=== PATIENT | male | born 1935 | race Caucasian/White ===

== ENCOUNTER 2020-12-05 09:21 | Inpatient (IN) | payer MEDICARE ==
[~2020-12-05] VITALS: Ht 177.8 cm; Wt 54.1 kg
[~2020-12-05 09:21] MED LIST: CRESTOR10 MG PO; EZET10TA20 PO; GLYB5TAB3 PO; HYDR-2761 PO; METF500T16 PO; PIOG30TA62 PO
[2020-12-05 09:52] LABS: BASO % 0 % (0-3); EOS % 0 % (0-3); HEMOGLOBIN 9.7 g/dL (13.0-17.5); LYMPH # 0.4 x10^3/uL (1.0-4.8); LYMPH % 6 % (24-48); MEAN CORPUSCULAR HEMOGLOBIN 23 pg (25-35); MEAN CORPUSCULAR HGB CONC 32 g/dL (31-37); MEAN CORPUSCULAR VOLUME 73 fL (79-100); MONO # 0.3 x10^3/uL (0.0-1.1); MONO % 4 % (0-9); NEUT % 90 % (31-73); PLATELET COUNT 229 x10^3/uL (140-400); RED BLOOD COUNT 4.14 x10^6/uL (4.30-5.70); RED CELL DISTRIBUTION WIDTH 16.2 % (11.5-14.5); WHITE BLOOD COUNT 6.7 x10^3/uL (4.0-11.0)
[2020-12-05 10:08] LABS: CALCIUM 8.8 mg/dL (8.5-10.1); CREATININE 0.6 mg/dL (0.7-1.3); GFR 127.7; POTASSIUM 3.5 mmol/L (3.5-5.1)
[2020-12-05 10:11] LABS: MAGNESIUM 1.5 mg/dL (1.8-2.4); TOTAL BILIRUBIN 0.4 mg/dL (0.2-1.0); TOTAL PROTEIN 8.1 g/dL (6.4-8.2)
--- NOTE | 2020-12-05 10:13 | RAD ---
Exam Date: 12/05/2020 9:45 AM XR CHEST 1V Indication: Reason: fall/gen weakness / Spl. Instructions: / History: . FINDINGS/ IMPRESSION: Blunting of the right costophrenic angle may represent pleural thickening/scarring versus a small rig ht pleural effusion. Bibasilar atelectasis and/or scarring is noted. No pneumothorax. The cardiac silhouette and pulmonary vasculature are within normal limits. Electronically signed by: Jose E Armstrong MD (12/05/2020 10:11 AM) [id number]
--- NOTE | 2020-12-05 11:02 | RAD ---
CT head without contrast dated 12/05/2020 10:57 AM Comparison: None CLINICAL INDICATION: Altered mental status TECHNIQUE: Contiguous axial imaging of the head was performed from skull base to vertex. One or more of the following individualized dose reduction techniques were utilized for this examinat ion: 1. Automated exposure control 2. Adjustment of the mA and/or kV according to patient size 3. Use of iterative reconstruction technique. FINDINGS: Study is limited due to motion artifact. Ventricles and sulci are mildly prominent for age. No midlin e shift or mass effect. Moderate patchy low density in the deep/subcortical periventricular white mat ter. Focal zone of low density in the middle cranial fossa on the right. No hemorrhage or extra-axial collection. Posterior fossa and brainstem unremarkable. Mild mucosal thickening of the ethmoid air cells. The visualized paranasal sinuses and mastoid air ce lls are otherwise clear. No apparent calvarial abnormality. IMPRESSION: 1. Focal zone of low density in the right temporal lobe is indeterminate and could represent subacute to remote infarct. Underlying mass with vasogenic edema cannot be excluded. Correlate clinically. If indicated, MRI brain with and without contrast and better evaluate. 2. Mild to moderate chronic small vessel ischemic changes and atrophy. 3. No apparent acute hemorrhage Electronically signed by: Jama Julio MD (12/05/2020 11:00 AM) [id number]
[2020-12-05 11:15] LABS: BILIRUBIN,URINE NEGATIVE (NEG); CLARITY,URINE CLEAR; COLOR,URINE YELLOW; NITRITE,URINE NEGATIVE (NEG); PROTEIN,URINE 100 mg/dL (NEG-TRACE); UROBILINOGEN,URINE 0.2 mg/dL (0.2 mg/dL)
[2020-12-05 11:21] LABS: BARBITURATES NEG (NEG); BENZODIAZEPINES NEG (NEG); CANNABINOIDS NEG (NEG); COCAINE NEG (NEG); METHADONE NEG (NEG); OPIATES NEG (NEG); PHENCYCLIDINE NEG (NEG)
[2020-12-05 11:24] LABS: AMPHETAMINE/METHAMPHETAMINE NEG (NEG)
[2020-12-05 11:49] LABS: BACTERIA,URINE 0 /HPF (0-FEW); RBC,URINE OCC /HPF (0-2); WBC,URINE 0 /HPF (0-4)
[2020-12-05] MEDS ORDERED: DIPH,PERTUSS(ACELL),TET VAC/PF 0.5 ML SYRINGE. VAX IM ONE (12:00)
--- NOTE | 2020-12-05 12:09 | PHYS DOC ---
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 reports patient fell out of the chair, hit the back of his head and passed out for a few seconds. States he woke up and was responding appropriately but later in the night became confused when his children came over to see him (cannot recall a specific time). This morning patient would not get out of bed. Has a baseline tremor. states "Is this early dementia?" Cannot recall any new medications. No h/o alcohol or drug use. Review of Systems: Review of Systems: Review of systems indeterminate given pts' mental status and confusion-brii ppropriate responses Heart Score: C/O Chest Pain: N/A Risk Factors: Risk Factors: DM, Current or recent (<one month) smoker, HTN, HLP, family history of CAD, obesity. Risk Scores: Score 0 - 3: 2.5% MACE over next 6 weeks - Discharge Home Score 4 - 6: 20.3% MACE over next 6 weeks - Admit for Clinical Observation Score 7 - 10: 72.7% MACE over next 6 weeks - Early Invasive Strategies Allergies: Allergies: Allergies Coded Allergies Type Severity Reaction Last Updated Verified amoxicillin Allergy Intermediate 07/25/13 Yes Physical Exam: PE: Constitutional: afebrile, states he needs to pee and tries to get out of bed- requires verbal deescalation, inappropriate responses HENT: No scalp hematoma-scalp scab present, no facial droop, dry mucous membranes Eyes: miotic pupils, EOMI, conjunctiva normal, no discharge, Neck: Normal range of motion, supple, looking left Cardiovascular: S1/2 present, regular rhythm Lungs & Thorax: Speaking in full sentences, bilateral equal chest rise, no tachypnea or increased work of breathing Abdomen: soft, no tenderness, Skin: Warm, dry, no erythema, no rash. [] Back: No tenderness, no CVA tenderness. [] Extremities: No tenderness, no cyanosis, no lower extremity edema Neurologic: Alert, baseline approximately tremors, moves in all 4 extremities with no drift, Psychologic: Affect normal, calm mood : No rash, no urine in urinal Current Patient Data: Labs: Laboratory Tests Test 12/05/20 08:54 12/05/20 09:37 Urine Collection Type Unknown Urine Color Yellow Urine Clarity Clear Urine pH 6.0 (<5.0-8.0) Urine Specific Pierson 1.020 (1.000-1.030) Urine Protein 100 mg/dL (NEG-TRACE) Urine Glucose (UA) 250 mg/dL (NEG) Urine Ketones (Stick) 15 mg/dL (NEG) Urine Blood Small (NEG) Urine Nitrite Negative (NEG) Urine Bilirubin Negative (NEG) Urine Urobilinogen Dipstick 0.2 mg/dL (0.2 mg/dL) Urine Leukocyte Esterase Negative (NEG) Urine RBC Occ /HPF (0-2) Urine WBC 0 /HPF (0-4) Urine Squamous Epithelial Cells Occ /LPF Urine Bacteria 0 /HPF (0-FEW) Urine Mucus Slight /LPF Urine Opiates Screen Neg (NEG) Urine Methadone Screen Neg (NEG) Urine Barbiturates Neg (NEG) Urine Phencyclidine Screen Neg (NEG) Urine Amphetamine/Methamphetamine Neg (NEG) Urine Benzodiazepines Screen Neg (NEG) Urine Cocaine Screen Neg (NEG) Urine Cannabinoids Screen Neg (NEG) Urine Ethyl Alcohol Neg (NEG) White Blood Count 6.7 x10^3/uL (4.0-11.0) Red Blood Count 4.14 x10^6/uL (4.30-5.70) L Hemoglobin 9.7 g/dL (13.0-17.5) L Hematocrit 30.0 % (39.0-53.0) L Mean Corpuscular Volume 73 fL (79-100) L Mean Corpuscular Hemoglobin 23 pg (25-35) L Mean Corpuscular Hemoglobin Concent 32 g/dL (31-37) Red Cell Distribution Width 16.2 % (11.5-14.5) H Platelet Count 229 x10^3/uL (140-400) Neutrophils (%) (Auto) 90 % (31-73) H Lymphocytes (%) (Auto) 6 % (24-48) L Monocytes (%) (Auto) 4 % (0-9) Eosinophils (%) (Auto) 0 % (0-3) Basophils (%) (Auto) 0 % (0-3) Neutrophils # (Auto) 6.0 x10^3/uL (1.8-7.7) Lymphocytes # (Auto) 0.4 x10^3/uL (1.0-4.8) L Monocytes # (Auto) 0.3 x10^3/uL (0.0-1.1) Eosinophils # (Auto) 0.0 x10^3/uL (0.0-0.7) Basophils # (Auto) 0.0 x10^3/uL (0.0-0.2) Sodium Level 137 mmol/L (136-145) Potassium Level 3.5 mmol/L (3.5-5.1) Chloride Level 97 mmol/L (98-107) L Carbon Dioxide Level 30 mmol/L (21-32) Anion Gap 10 (6-14) Blood Urea Nitrogen 16 mg/dL (8-26) Creatinine 0.6 mg/dL (0.7-1.3) L Estimated GFR (Cockcroft-Gault) 127.7 BUN/Creatinine Ratio 27 (6-20) H Glucose Level 190 mg/dL (70-99) H Calcium Level 8.8 mg/dL (8.5-10.1) Magnesium Level 1.5 mg/dL (1.8-2.4) L Total Bilirubin 0.4 mg/dL (0.2-1.0) Aspartate Amino Transferase (AST) 17 U/L (15-37) Alanine Aminotransferase (ALT) 19 U/L (16-63) Alkaline Phosphatase 66 U/L (46-116) Troponin I High Sensitivity 10 ng/L (4-75) DB-Ppb-P-Type Natriuretic Peptide 739 pg/mL (0-449) H Total Protein 8.1 g/dL (6.4-8.2) Albumin 4.0 g/dL (3.4-5.0) Albumin/Globulin Ratio 1.0 (1.0-1.7) Laboratory Tests 12/05/20 09:37 Laboratory Tests 12/05/20 09:37 Vital Signs: Vital Signs Date Time Temp Pulse Resp B/P (MAP) Pulse Ox O2 Delivery O2 Flow Rate FiO2 12/05/20 09:30 99.5 97 16 164/84 (110) 97 Room Air 99.5 EKG: EKG: sinus rhythm 86 bpm, no axis deviation, first-degree AV block with WI interval 226, QTc 451, no T wave inversion, no ST elevation or ST depression Radiology/Procedures: Radiology/Procedures: IMAGING REPORT Signed PATIENT: ERNA AMOR ACCOUNT: [id number] : 1935 LOCATION: ER AGE: 84 SEX: M EXAM STATUS: REG ER ORD. PHYSICIAN: HELEN MAIER DO REASON: ams PROCEDURE: CT HEAD WO CONTRAST CT head without contrast dated 12/05/2020 10:57 AM Comparison: None CLINICAL INDICATION: Altered mental status TECHNIQUE: Contiguous axial imaging of the head was performed from skull base to vertex. One or more of the following individualized dose reduction techniques were utilized for this examination: 1. Automated exposure control 2. Adjustment of the mA and/or kV according to patient size 3. Use of iterative reconstruction technique. FINDINGS: Study is limited due to motion artifact. Ventricles and sulci are mildly prominent for age. No midline shift or mass effect. Moderate patchy low density in the deep/subcortical periventricular white matter. Focal zone of low density in the middle cranial fossa on the right. No hemorrhage or extra-axial collection. Posterior fossa and brainstem unremarkable. Mild mucosal thickening of the ethmoid air cells. The visualized paranasal sinuses and mastoid air cells are otherwise clear. No apparent calvarial abnormality. IMPRESSION: 1. Focal zone of low density in the right temporal lobe is indeterminate and could represent subacute to remote infarct. Underlying mass with vasogenic edema cannot be excluded. Correlate clinically. If indicated, MRI brain with and without contrast and better evaluate. 2. Mild to moderate chronic small vessel ischemic changes and atrophy. 3. No apparent acute hemorrhage Electronically signed by: Jama Julio MD (12/05/2020 11:00 AM) [id number] DICTATED and SIGNED BY: JAMA JULIO MD DATE: 12/05/20 [id number] IMAGING REPORT Signed PATIENT: ERNA AMOR ACCOUNT: [id number] : 1935 LOCATION: ER AGE: 84 SEX: M EXAM STATUS: REG ER ORD. PHYSICIAN: HELEN MAIER DO REASON: fall/gen weakness PROCEDURE: PORTABLE CHEST 1V Exam Date: 12/05/2020 9:45 AM XR CHEST 1V Indication: Reason: fall/gen weakness / Spl. Instructions: / History: . FINDINGS/ IMPRESSION: Blunting of the right costophrenic angle may represent pleural thickening/scarring versus a small right pleural effusion. Bibasilar atelectasis and/or scarring is noted. No pneumothorax. The cardiac silhouette and pulmonary vasculature are within normal limits. Electronically signed by: Lindsay Armstrong MD (12/05/2020 10:11 AM) [id number] DICTATED and SIGNED BY: LINDSAY ARMSTRONG MD DATE: 12/05/20 [id number] 0 Course & Med Decision Making: Course & Med Decision Making Pertinent Labs and Imaging studies reviewed. (See chart for details) Concern for new onset altered mental status within the past 12 to 24 hours. I spoke w/Dr. Evans in the ed regarding pts' care. Neurology consult placed including nonemergent MRI of the head without contrast. Will admit for further medical management. Patient stable at time of admission agrees with this plan. I have spoken with the patient and/or caregivers. I have explained the patie nt's condition, diagnosis and treatment plan based on the information available to me at this time. I have answered the patient's and/or caregivers questions and answered any concerns. The patient and/or caregivers have as good an understanding of the patient's diagnosis, condition and treatment plan as can be expected at this point. The patient has been stabilized within the capability of the emergency department. The patient will be transported for further care and management or will be moved to an observation or inpatient service. I have communicated with the staff or medical practitioner taking over this patient's care. Dragon Disclaimer: Dragon Disclaimer: This electronic medical record was generated, in whole or in part, using a voice recognition dictation system. Departure Departure Impression: Primary Impression: Altered mental status Additional Impressions: Abrasion of head Need for Tdap vaccination Abnormal CT of brain Microcytic anemia Disposition: ADMITTED INPATIENT Admitting Physician: Marisela Evans Condition: GUARDED Referrals: MARISELA EVANS MD (PCP) HELEN MAIER DO Dec 05, 2020 12:09
[2020-12-05] MEDS ORDERED: CONTRAST GIVEN. MC PRN (12:30)
[2020-12-05] MEDS ORDERED: IOHEXOL 300 MG/ML 100ML VIAL. IV ONE (12:30)
--- NOTE | 2020-12-05 14:15 | RAD ---
EXAM: 1. CTA HEAD WITH AND WITHOUT CONTRAST. 2. CTA NECK WITH AND WITHOUT CONTRAST. HISTORY: Left gaze deviation, aphasia. TECHNIQUE: Computed tomographic angiography of the head and neck was performed before and after the i ntravenous administration of iodinated contrast. Three-dimensional reconstructions were also performe d. One or more of the following individualized dose reduction techniques were utilized for this exami nation: 1. Automated exposure control. 2. Adjustment of the mA and/or kV according to patient size. 3. Use of iterative reconstruction technique. COMPARISON: CT 12/05/2020. FINDINGS: Angiographic findings: The aortic arch has a typical branching pattern. There is no arch vessel steno sis. Extensive calcified plaquing at the right greater than left carotid bulbs extends to the origins of b oth cervical internal carotid arteries. This results in <50% stenosis on the right. There is no hemod ynamically significant stenosis of either cervical internal carotid artery. There is moderate stenosi s at the origin of the right external carotid artery. The left is patent. The vertebral arteries are patent. The left is dominant and the right relatively small. The basilar artery is small but patent. The posterior communicating arteries are the main supply to b oth posterior cerebral arteries. The P1 segments are diminutive bilaterally. Both posterior cerebral arteries are patent. There are moderate atherosclerotic calcifications of both cavernous internal carotid arteries. There is mild dolichoectasia bilaterally, measuring up to 7 mm on the right and 6 mm on the left. There is no significant stenosis. The middle cerebral arteries are patent. The anterior cerebral arteries are patent. The anterior communicating artery is visualized. Nonangiographic findings: There is no intracranial hemorrhage. Hypoattenuation is again noted through out the right anterior temporal lobe. There is no clear underlying enhancing lesion, though sensitivi ty is low by this technique. Prominence of the lateral ventricles and hemispheric sulci indicate mode rate atrophy. There is moderate mucosal thickening within the right maxillary sinus. There are changes of bilateral cataract surgery. The temporal bones are unremarkable. Bone windows reveal no suspicious lesions. Th ere is diffuse moderate cervical central canal stenosis. The lung apices demonstrate a small to moder ate right pleural effusion. The parotid glands and submandibular glands are unremarkable. The thyroid gland demonstrates no suspi cious lesions. There are no laryngeal or pharyngeal masses. There are no pathologically enlarged lymph nodes. IMPRESSION: 1. Hypoattenuation of the right anterior temporal lobe may represent a subacute infarct. An underlyin g mass or inflammatory processes such as encephalitis are not excluded. MRI with and without contrast and correlation to exclude infection recommended. 2. <50% stenosis at the origin of the right cervical internal carotid artery. 3. 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 No intracranial stenosis or aneurysm. 4. Small posterior circulation. Persistent supply to both posterior cerebral arteries. 5. Small to moderate right pleural effusion. PQRS Compliance Statement - Stenosis calculations for CT, MR and conventional angiography are based u laurie measurement of the distal ICA diameter in accordance with the NASCET methodology. Stenosis calcu lations for carotid ultrasound studies are derived from validated velocity criteria which are known t o correlate with the NASCET methodology. Electronically signed by: Byron Mckinley MD (12/05/2020 2:12 PM) [facility]
--- NOTE | 2020-12-05 14:46 | RAD ---
EXAM: MRI BRAIN WITHOUT CONTRAST. HISTORY: Altered mental status, right temporal lesion. TECHNIQUE: Magnetic resonance images of the brain were obtained without intravenous contrast. COMPARISON: Today's CT. FINDINGS: There is T2 hyperintensity within both mesial temporal lobes. Diffusion restriction is noted on the l eft greater than right. Edema extends throughout the right anterior temporal lobe more diffusely. A 1 0 mm region of petechial hemorrhage is suspected within the left mesial temporal lobe, but a mass can not be fully excluded without contrast. A lesser diffusion restriction extends posteriorly along the limbic system along the right left greater than right. Dural thickening on the right in a temporal and occipital distribution is favored over a trace subdur al hematoma comparison with CT. There is minimal chronic microangiopathic white matter change elsewhere. Prominence of the lateral ve ntricles and hemispheric sulci indicate moderate atrophy. There is moderate mucosal thickening within the right maxillary sinus. There are changes of bilateral cataract surgery. The temporal bones are unremarkable. The calvarium demonstrates no suspicious lesi ons. IMPRESSION: 1. 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 Co rrelate for herpes encephalitis or other causes. 2. A 1 cm masslike focus within the left mesial temporal lobe is likely a small region of petechial h emorrhagic transformation rather than a mass, but this is not definitive without contrast. Correlate to exclude a source of metastatic disease. 3. Pachymeningeal thickening on the right is nonspecific and may reflect meningeal inflammation or re active change in the setting of the aforementioned process. These findings were called to Dr. Do by Tavares Mckinley on 12/05/2020 at 2:35 PM. FOR INTERNAL CODING PURPOSES RESULT CODE: (C) Electronically signed by: Byron Mckinley MD (12/05/2020 2:44 PM) [facility]
[2020-12-05] MEDS ORDERED: ACYCLOVIR SODIUM IV ONE (15:00)
[2020-12-05] MEDS ORDERED: DEXTROSE 5% IV ONE (15:00)
[2020-12-05] MEDS ORDERED: HALOPERIDOL LACTATE 5 MG/ML VIAL. IVP ONE (15:45)
[2020-12-05] MEDS ORDERED: MIDAZOLAM HCL/PF 2 MG/2 ML VIAL. ONE (15:51)
[2020-12-05 16:35] VITALS: BP 148/57
--- NOTE | 2020-12-05 16:44 | NUR ---
ADMISSION PT ARRIVES ON FLOOR AT 1635 VIA GURNEY FROM ED. HE IS ON RA, AT BEDSIDE. HE IS ASLEEP, ET DOES NOT WAKE DURING TRANSFER FROM [facility] TO BED. TELEMETRY APPLIED, VS ASSESSED. INCONTINENT CARE PROVIDED. HE IS AROUSABLE TO CALL OF NAME, RESPONDS BEST TO .
[2020-12-05 16:45] LABS: CSF CLARITY CLEAR; CSF COLOR COLORLESS
[2020-12-05 16:46] LABS: CSF RBC COUNT 0 /cmm (Not Established); CSF WBC COUNT 1 /cmm (Not Established)
[2020-12-05] MEDS ORDERED: METF10007 PO (17:08)
[2020-12-05] MEDS ORDERED: APIX5TAB PO (17:08)
[2020-12-05] MEDS ORDERED: EZET10TA48 PO (17:08)
[2020-12-05] MEDS ORDERED: FLUD0.1T PO (17:08)
[2020-12-05 18:09] LABS: CSF PROTEIN 139.2 mg/dL (15.0-45.0)
[2020-12-05 19:25] VITALS: BP 120/56
[2020-12-05 22:57] VITALS: BP 128/63
--- NOTE | 2020-12-05 23:11 | HP ---
DATE OF SERVICE: 12/05/2020 ADMIT DATE: 12/05/2020 CHIEF COMPLAINT AND HISTORY OF PRESENT ILLNESS: This 84-year-old male is well known to me from followup in the office. The patient fell backwards striking his head on the evening prior to admission, was much more confused, weak, had stool on himself with diarrhea, was brought to the Emergency Room. Of note is the patient was seen earlier this week with increased confusion, which son felt had been since his last hospitalization at [facility] back in the summer, but things have definitely been worse over the last month or so again. 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 He did improve on return to home where he was pretty functional for a period of time. The patient was once again found to have what looks like encephalitis on MRI scanning of the head of the temporal lobes. He did have spinal tap showing normal glucose, but elevated protein. He was admitted after a dose of acyclovir in the Emergency Room with neurological consultation ordered. PAST MEDICAL HISTORY: Remarkable for atrial fibrillation, type 2 diabetes, some dysphagia after his hospitalization. He was found to have 2.5 cm x 2.5 cm right renal mass, which has changed very little over the last year. He did have an acute ischemic event of his left arm with clotting a year or so ago. PAST SURGICAL HISTORY: Remarkable for removal of that clot, tonsillectomy, back surgery x 2, cataracts. MEDICATIONS: Brought with the patient, listed on the computer have been addressed. ALLERGIES: HE IS ALLERGIC TO AMOXICILLIN AND LATEX. FAMILY HISTORY: Positive for mom dying at age 85 of cardiovascular disease. Dad at age 90. SOCIAL HISTORY: He has been nonsmoker for greater than 10 years. Denies alcohol use. Does not use drugs. , lives at home with his . REVIEW OF SYSTEMS: Unobtainable as the patient is definitely encephalopathic, not recognizing me and nonsensical speech. PHYSICAL EXAMINATION: GENERAL: He is a well-developed, well-nourished male in no acute distress. VITAL SIGNS: Stable. He is afebrile. HEAD, EYES, EARS, NOSE AND THROAT: Unremarkable. NECK: Supple without adenopathy or thyromegaly. CHEST: Clear to auscultation and percussion. HEART: Regular rate and rhythm without S3, S4 or murmur. ABDOMEN: Soft, nontender, without hepatosplenomegaly or masses. EXTREMITIES: Without cyanosis, clubbing or edema. NEUROLOGIC: Remarkable for the confusion. ASSESSMENT: 1. Mental status change as described above, similar to episode earlier in the year. 2. Diabetes. 3. History of atrial fibrillation, on anticoagulation. 4. Hyperlipidemia. PLAN: Acyclovir IV, close monitoring, neurological consultation. The patient will be managed and treated appropriately. YAZMIN/ALICE DR: Ana TID: [id number]
[2020-12-06] MEDS ORDERED: ACYCLOVIR SODIUM IV SCH
[2020-12-06] MEDS ORDERED: DEXTROSE 5% IV SCH
[2020-12-06 03:15] VITALS: BP 157/78
[2020-12-06 04:10] LABS: PROTHROMBIN TIME PATIENT 13.6 SEC (11.7-14.0)
--- NOTE | 2020-12-06 05:35 | EKG ---
[facility] [address] [place] [address] Test Date: 2020-12-05 Test Time: 10:01:34 Pat Name: ERNA AMOR Department: Room: [facility] Gender: M [employer] Supervisor: : 1935 Requested By: HELEN MAIER Order Number: [id number] Reading MD: Noble Willett Measurements Intervals [place] Rate: 115 P: 54 OK: 196 QRS: 90 QRSD: 104 T: 93 QT: 284 QTc: 394 Interpretive Statements SINUS TACHYCARDIA COMPLEX(ES) WITH ABERRANT INTRAVENTRICULAR CONDUCTION ATRIAL PREMATURE COMPLEX(ES) PROLONGED OK INTERVAL LVH WITH REPOLARIZATION ABNORMALITY ABNORMAL ECG RI6.02 No previous ECG available for comparison Electronically Signed On 12-06-2020 13:18:12 CDT by Noble Willett
[2020-12-06 07:00] VITALS: BP 153/73
--- NOTE | 2020-12-06 09:53 | PDOC ---
Provider Note Date of Service: DATE: 12/06/20 TIME: 09:51 Provider Note low grade temp, bp ok- agitated, nonfocal, not responsive, moves all extre labs ok, csf proein up bur only 1 wbc- cont sedation, d/w family, they request dnr, done Justifications for Admission Other Justification AUGUSTINE HARRISON MD Dec 06, 2020 09:53
[2020-12-06] MEDS: ACYCLOVIR SODIUM IV SCH ×2 (10:07→21:00)
[2020-12-06] MEDS: DEXTROSE 5% IV SCH ×2 (10:07→21:00)
[2020-12-06 11:00] VITALS: BP 122/58
[2020-12-06 15:00] VITALS: BP 128/58
[2020-12-06] MEDS: HALOPERIDOL LACTATE 5 MG/ML VIAL. IVP PRN ×2 (15:12→21:01)
[2020-12-06 19:00] VITALS: BP 144/66
--- NOTE | 2020-12-06 20:00 | CONS ---
DATE OF CONSULTATION: 12/06/2020 REFERRING PHYSICIAN: Dr. Zimmer. REASON FOR CONSULTATION: Acute mental status change with abnormal MRI and cerebrospinal fluid. HISTORY OF PRESENT ILLNESS: The patient is an 84-year-old man who fell out of his chair backwards striking the back of his head on 12/04/2020. EMS was summoned, but he seemed to be back to his usual self, so they did not elect to go to the hospital. At home, he progressively worsened with confusion and then was incontinent of stool with diarrhea. His brought him into the hospital. Since being in the hospital, he has been very confused and disoriented. Normally, he does have some difficulty with short-term memory, but does fairly well. Of note is that 2 months ago, he was out in the heat and had a spell of syncope. He went to [facility] and had investigation. I do not have results of the investigation, but I did speak with the Emergency Room physician who seemed to have some information regarding the hospital stay. They were concerned about a herpes encephalitis. 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 A lumbar puncture was also performed, which revealed only 1 white cell, no red cells, elevated protein and elevated sugar. The serum sugar was also elevated, so the cerebrospinal fluid sugar was appropriate for the serum sugar. The patient has received 1 mg of Ativan, which did allow him to get some rest, but now he is quite agitated. His daughter is at bedside, trying to keep him calm. His was also present as was a son. The patient himself is not able to provide any meaningful history. PAST MEDICAL HISTORY: 1. Atrial fibrillation for which he is on Eliquis. 2. DVT, left arm, also for which reason he is on Eliquis. 3. Type 2 diabetes. 4. Dysphagia after the hospitalization 2 months ago. 5. A 2.5 cm x 2.5 cm right renal mass, which has not changed much over the last year. 6. Acute ischemic event of the left arm, which was surgically addressed. 7. Tonsillectomy. 8. Cataract surgery. 9. Two back surgeries. ALLERGIES: AMOXICILLIN AND LATEX. MEDICATIONS: Prior to admission, apixaban 5 mg twice per day, Zetia 10 mg, fludrocortisone acetate 0.1 mg, metformin 1000 mg twice per day and rosuvastatin 10 mg at night. FAMILY HISTORY: Mother at 85 years from cardiovascular disease. Father at 90 years. SOCIAL HISTORY: He is . He lives at home with his . He does not use recreational drugs, use tobacco and has quit smoking more than 10 years ago. REVIEW OF SYSTEMS: Unobtainable as the patient is not able to verbally respond. According to family, he had been back to his usual self with some memory loss until he hit his head on 12/04. PHYSICAL EXAMINATION: VITAL SIGNS: The blood pressure was 122/58, pulse 61, respirations 16, temperature 99.2 degrees Fahrenheit axillary. Oximetry was 94% on room air. His weight was 58.2 kilograms, height 70 inches with a calculated body mass index of 18.4. NEUROLOGIC: He was lying in the bed, pulling at all of his lines and removing his gown. I spoke loudly and clearly, but he was not able to respond to any questions or follow any commands. He was vocalizing and did make words, which really were not relevant to the situation. He was clearly quite confused. He did keep his eyes closed. When held open, the eyes were conjugate and pupils were 3 mm. Oculocephalic reflex appeared intact. He did respond to loud clap. Face was symmetric. He did have a pucker reflex, which was symmetric. Palmomental reflex was present and symmetric. Neck did not feel extremely rigid, but he did have limited motion. Muscle bulk was diminished throughout. Tone was not spastic or rigid, but he generally followed most movement. Power was fairly full. When he was trying to rip off his oximeter and I prevented this, he was very strong. He could hold his arms up in the air symmetrically and there was no drift. He would also hold his legs up in the air without drift. Nail bed pressure did provoke a response with a grimace and withdrawal. He could also perceive nail bed pressure in his feet. Toes were not upgoing. Reflexes were 2/4 in the upper extremities present at the left knee, but not the right. Ankle reflexes were absent. Toes were not upgoing. Formal coordination testing was not possible. He did have a tremor of the left arm. Sensation was not testable beyond painful stimulation. Gait was not testable. Peripheral pulses were symmetric, but diminished. There was no edema or cyanosis. LABORATORY RESULTS: CBC was performed on 12/05/2020 revealing normal white blood cell count and platelet count. The hemoglobin was diminished at 9.7 and hematocrit at 30. Chemistries were performed on 12/05/2020. This revealed normal sodium and potassium, but chloride was low at 97 and CO2 was normal. BUN was normal. Creatinine was low at 0.6 with a GFR calculating at 127.7. Glucose was elevated at 190. Calcium was normal. Magnesium was low at 1.5. Liver enzymes were not elevated. Total protein and albumin were normal. BNP was elevated to 739. Troponin was not elevated. Urine toxicology was negative for substances of abuse. Cerebrospinal fluid was obtained on 12/05/2020. The spinal fluid was colorless and clear. There was 1 white cell and 0 red cells. Glucose was elevated at 116 compared to a serum glucose at 190. Protein was elevated to 139.2. Coagulation was performed on 12/06/2020 revealing a PT/INR of 1 and PTT of 33. DIAGNOSTIC RESULTS: Chest x-ray was performed on 12/05/2020 revealing blunting of the right costophrenic angle, may represent pleural thickening/scarring versus a small pleural effusion. No pneumothorax. Cardiac silhouette and pulmonary vasculature was normal. Bibasilar atelectasis and/or scarring noted. Head CT scan was performed on 12/05/2020 revealing focal zone of low density in the right temporal lobe, indeterminate. [id number] chronic small vessel ischemic change and atrophy. No hemorrhage. MRI brain was performed without contrast on 12/05/2020. This revealed bilateral temporal lobe edema and diffusion restriction consistent with limbic encephalitis. Correlate for herpes encephalitis or other causes. There was a 1 cm mass-like focus within the left mesial temporal lobe, most likely a region of petechial hemorrhagic transformation rather than a mass. It was not definitive without contrast. There was parenchymal thickening of the right, nonspecific and may reflect meningeal inflammation or reactive change in the setting of the aforementioned process. CTA of the head and neck was performed on 12/05/2020. This revealed hypoattenuation of the right anterior temporal lobe, may represent a subacute infarct. Underlying mass or inflammatory process such as encephalitis are not excluded. MRI recommended. There was less than 50% stenosis of the right cervical internal carotid artery. There was dolichoectasia of both cavernous internal carotid arteries. No intracranial stenosis or aneurysm. Small posterior circulation. Persistent supply to both posterior cerebral arteries and [id number] right pleural effusion. IMPRESSION: The patient is a very confused 84-year-old man. 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 He will need a followup MRI with contrast. There is concern for herpes encephalitis, but given only 1 white cell and no red cells, this would seem less likely. The protein was elevated suggesting an inflammatory process in the cerebrospinal fluid. He is on acyclovir, which we will continue until the herpes PCR comes back negative. He does have a renal lesion, which could be malignancy that could be contributing to the limbic encephalitis as this is usually due to a paraneoplastic syndrome. Further investigation of this lesion may be indicated or possibly biopsy. He is quite encephalopathic, which potentially could be from the fall and concussion. I have requested records from [facility] to see if the MRI were similar and if they did spinal fluid studies. Appreciate being involved in the care. NARCISO DR: Candi TID: [id number] CC: MARISELA RAMOS MD
[2020-12-06 23:00] VITALS: BP 100/55
[2020-12-07 03:00] VITALS: BP 131/61
[2020-12-07 07:00] VITALS: BP 151/85
[2020-12-07] MEDS: DEXTROSE 5% IV SCH ×2 (08:52→22:53)
[2020-12-07] MEDS: ACYCLOVIR SODIUM IV SCH ×2 (08:52→22:53)
[2020-12-07 11:00] VITALS: BP 139/62
--- NOTE | 2020-12-07 11:11 | PDOC ---
PROGRESS NOTES Date of Service DATE: 12/07/20 TIME: 10:54 Assessment Problems Medical Problems: (1) Abnormal CT of brain Status: Acute (2) Abrasion of head Status: Acute (3) Altered mental status Status: Acute (4) Microcytic anemia Status: Acute (5) Need for Tdap vaccination Status: Acute He fell out of his chair and hit his head, he is acting like he had a concussion, he is improving. 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 This type of course would be very unlikely in any type of encephalitis. Bilateral temporal lobe edema and diffusion restriction. This was also observed at [facility]. Lumbar puncture here shows 1 white blood cell, 0 red blood cells, glucose 116, protein 139.2. I doubt any type of acute encephalitis, paraneoplastic encephalitis, ongoing seizure activity. I wonder about a low- grade neoplasm. In the past, the family has declined biopsy. Past medical history of atrial fibrillation for which he is on Eliquis, DVT, left arm, type 2 diabetes, dysphagia after the hospitalization 2 months ago, 2.5 cm x 2.5 cm right renal mass, , acute ischemic event of the left arm, tonsillectomy, cataract surgery, two back surgeries. Review of [facility] records: EEG on 10/06/2020 showed beta activity, consistent with medication use, no epileptic activity, specifically no mention of any temporal lobe epileptic abnor malities as would be seen in herpes encephalitis or other temporal lobe encephalitis MRI brain, 10/03/2020, increased signal in the hippocampus temporal lobes bilaterally, left greater than right [facility] paraneoplastic encephalitis panel, all negative. Normal ferritin, B12, Covid Nephrology, neurology, neurosurgery, and urology saw him for right renal mass, they did not think this was neoplastic or related to the brain problems Plan Electroencephalogram, I realize I am repeating from the [facility] study, but it would be useful to see if there is any worsening Continue acyclovir until the herpes PCR comes back negative. Family is still not interested in a brain biopsy. Rehabilitation modalities. Subjective He denies headaches Objective Vital Signs Date Time Temp Pulse Resp B/P (MAP) Pulse Ox O2 Delivery O2 Flow Rate FiO2 12/07/20 08:00 Room Air 12/07/20 07:00 99.4 85 18 151/85 (107) 96 99.4 Intake and Output 12/07/20 07:00 Intake Total 112 ml Output Total 1 ml Balance 111 ml Intake Oral 0 ml IV Total 112 ml Output Urine Total 1 ml PHYSICAL EXAM Alert. Oriented only to person. PERRL. EOMI. CN: no focal findings. Muscle tone: normal. Muscle strength: 4/5 DTR: 2+ Plantar reflex: Flexor Gait: not examined in bed. Sensory exam: no abnormal findings. Cerebellar: Not cooperative 40 minutes of care including discussing with , examining the patient, and reviewing the extensive records from [facility] Review of Relevant I have reviewed the following items megan (where applicable) has been applied. Labs Laboratory Tests Test 12/05/20 16:07 12/06/20 03:40 12/06/20 17:00 CSF Tube Number 3 CSF Color Colorless CSF Clarity Clear CSF WBC 1 /cmm (Not Established) CSF RBC 0 /cmm (Not Established) CSF Glucose 116 mg/dL (37-70) CSF Total Protein 139.2 mg/dL (15.0-45.0) Prothrombin Time 13.6 SEC (11.7-14.0) Prothromb Time International Ratio 1.0 (0.8-1.1) Activated Partial Thromboplast Time 33 SEC (24-38) Troponin I High Sensitivity 15 ng/L (4-75) Glucose (Fingerstick) 151 mg/dL (70-99) Laboratory Tests Test 12/06/20 17:00 Glucose (Fingerstick) 151 mg/dL (70-99) Medications Current Medications Diphtheria/ Tetanus/Acell Pertussis (ADACEL TDap SYRINGE) 0.5 ml ONCE ONCE VAX IM Last administered on 12/05/20at 14:44; Start 12/05/20 at 12:00; Stop 12/05/20 at 12:03; Status DC Iohexol (Omnipaque 300 Mg/ml) 75 ml 1X ONCE IV Last administered on 12/05/20at 13:00; Start 12/05/20 at 12:30; Stop 12/05/20 at 12:31; Status DC Info (CONTRAST GIVEN -- Rx MONITORING) 1 each PRN DAILY PRN MC SEE COMMENTS; Start 12/05/20 at 12:30; Stop 12/07/20 at 12:29 Lorazepam (Ativan Inj) 0.5 mg 1X ONCE IVP Last administered on 12/05/20at 12:50; Start 12/05/20 at 13:00; Stop 12/05/20 at 13:01; Status DC Acyclovir Sodium 530 mg/Dextrose 110.6 ml @ 110.6 mls/ hr 1X ONCE IV Last administered on 12/05/20at 15:50; Start 12/05/20 at 15:00; Stop 12/05/20 at 15:59; Status DC Haloperidol Lactate (Haldol Inj) 5 mg 1X ONCE IVP Last administered on 12/05/20at 15:38; Start 12/05/20 at 15:45; Stop 12/05/20 at 15:46; Status DC Midazolam HCl (Versed) 2 mg STK-MED ONCE .ROUTE ; Start 12/05/20 at 15:51; Stop 12/05/20 at 15:52; Status DC Acyclovir Sodium 600 mg/Dextrose 262 ml @ 262 mls/hr Q12HR IV Last administered on 12/05/20at 23:42; Start 12/06/20 at 00:00; Stop 12/06/20 at 05:21; Status DC Acyclovir Sodium 600 mg/Dextrose 112 ml @ 112 mls/hr Q12HR IV Last administered on 12/07/20at 08:52; Start 12/06/20 at 09:00 Haloperidol Lactate (Haldol Inj) 3 mg PRN Q6HRS PRN IVP AGITATION Last administered on 12/06/20at 21:01; Start 12/06/20 at 10:00 Lorazepam (Ativan Inj) 1 mg PRN Q4HRS PRN IVP ANXIETY / AGITATION-1ST; Start 12/06/20 at 10:00 Lorazepam (Ativan Inj) 1 mg 1X ONCE IVP Last administered on 12/06/20at 10:07; Start 12/06/20 at 10:00; Stop 12/06/20 at 10:01; Status DC Active Scripts Active Reported Fludrocortisone Acetate 0.1 Mg Tablet 0.1 Mg PO DAILY Eliquis (Apixaban) 5 Mg Tablet 5 Mg PO BIDWMEALS Metformin Hcl 1,000 Mg Tablet 1,000 Mg PO BIDWMEALS Ezetimibe 10 Mg Tablet 10 Mg PO HS Crestor (Rosuvastatin Calcium) 10 Mg Tablet 10 Mg PO HS Zetia (Ezetimibe) 10 Mg Tablet 10 Mg PO DAILY Vitals/I & O Vital Sign - Last 24 Hours 12/06/20 12/06/20 12/06/20 12/06/20 11:00 15:00 19:00 20:15 Temp 99.2 98.2 98.7 99.2 98.2 98.7 Pulse 61 70 88 Resp 16 16 16 B/P (MAP) 122/58 (79) 128/58 (81) 144/66 (92) Pulse Ox 94 93 94 O2 Delivery Room Air Room Air Room Air Room Air 12/06/20 12/07/20 12/07/20 12/07/20 23:00 03:00 07:00 08:00 Temp 97.8 98.5 99.4 97.8 98.5 99.4 Pulse 75 85 85 Resp 23 18 18 B/P (MAP) 100/55 (70) 131/61 (84) 151/85 (107) Pulse Ox 93 95 96 O2 Delivery Room Air Room Air Room Air Room Air Intake and Output 12/06/20 12/06/20 12/07/20 15:00 23:00 07:00 Intake Total 112 ml 0 ml 0 ml Output Total 1 ml Balance 112 ml 0 ml -1 ml Images 1. CTA HEAD and NECK WITH AND WITHOUT CONTRAST, 12/05/2020. HISTORY: Left gaze deviation, aphasia. TECHNIQUE: Computed tomographic angiography of the head and neck was performed before and after the intravenous administration of iodinated contrast. Three- dimensional reconstructions were also performed. One or more of the following individualized dose reduction techniques were utilized for this examination: 1. Automated exposure control. 2. Adjustment of the mA and/or kV according to patient size. 3. Use of iterative reconstruction technique. COMPARISON: CT 12/05/2020. FINDINGS: Angiographic findings: The aortic arch has a typical branching pattern. There is no arch vessel stenosis. Extensive calcified plaquing at the right greater than left carotid bulbs extends to the origins of both cervical internal carotid arteries. This results in <50% stenosis on the right. There is no hemodynamically significant stenosis of either cervical internal carotid artery. There is moderate stenosis at the origin of the right external carotid artery. The left is patent. The vertebral arteries are patent. The left is dominant and the right relatively small. The basilar artery is small but patent. The posterior communicating arteries are the main supply to both posterior cerebral arteries. The P1 segments are diminutive bilaterally. Both posterior cerebral arteries are patent. There are moderate atherosclerotic calcifications of both cavernous internal carotid arteries. There is mild dolichoectasia bilaterally, measuring up to 7 mm on the right and 6 mm on the left. There is no significant stenosis. The middle cerebral arteries are patent. The anterior cerebral arteries are patent. The anterior communicating artery is visualized. Nonangiographic findings: There is no intracranial hemorrhage. Hypoattenuation is again noted throughout the right anterior temporal lobe. There is no clear underlying enhancing lesion, though sensitivity is low by this technique. Prominence of the lateral ventricles and hemispheric sulci indicate moderate atrophy. There is moderate mucosal thickening within the right maxillary sinus. There are changes of bilateral cataract surgery. The temporal bones are unremarkable. Bone windows reveal no suspicious lesions. There is diffuse moderate cervical central canal stenosis. The lung apices demonstrate a small to moderate right pleural effusion. The parotid glands and submandibular glands are unremarkable. The thyroid gland demonstrates no suspicious lesions. There are no laryngeal or pharyngeal masses. There are no pathologically enlarged lymph nodes. IMPRESSION: 1. Hypoattenuation of the right anterior temporal lobe may represent a subacute infarct. An underlying mass or inflammatory processes such as encephalitis are not excluded. MRI with and without contrast and correlation to exclude infection recommended. 2. <50% stenosis at the origin of the right cervical internal carotid artery. 3. 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 No intracranial stenosis or aneurysm. 4. Small posterior circulation. Persistent supply to both posterior cerebral arteries. 5. Small to moderate right pleural effusion. MRI BRAIN WITHOUT CONTRAST. HISTORY: Altered mental status, right temporal lesion. TECHNIQUE: Magnetic resonance images of the brain were obtained without intravenous contrast. COMPARISON: Today's CT. FINDINGS: There is T2 hyperintensity within both mesial temporal lobes. Diffusion restriction is noted on the left greater than right. Edema extends throughout th e right anterior temporal lobe more diffusely. A 10 mm region of petechial hemorrhage is suspected within the left mesial temporal lobe, but a mass cannot be fully excluded without contrast. A lesser diffusion restriction extends posteriorly along the limbic system along the right left greater than right. Dural thickening on the right in a temporal and occipital distribution is f avored over a trace subdural hematoma comparison with CT. There is minimal chronic microangiopathic white matter change elsewhere. Prominence of the lateral ventricles and hemispheric sulci indicate moderate atrophy. There is moderate mucosal thickening within the right maxillary sinus. There are changes of bilateral cataract surgery. The temporal bones are unremarkable. The calvarium demonstrates no suspicious lesions. IMPRESSION: 1. 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 Correlate for herpes encephalitis or other causes. 2. A 1 cm masslike focus within the left mesial temporal lobe is likely a small region of petechial hemorrhagic transformation rather than a mass, but this is not definitive without contrast. Correlate to exclude a source of metastatic disease. 3. Pachymeningeal thickening on the right is nonspecific and may reflect meningeal inflammation or reactive change in the setting of the aforementioned process. Justicifation of Admission Dx: Justifications for Admission: Justification of Admission Dx: N/A KATHRYN HALL MD Dec 07, 2020 11:11
--- NOTE | 2020-12-07 11:33 | PN ---
DATE: 12/07/2020 LOCATION: He is in room 660. SUBJECTIVE: This 84-year-old male remains hospitalized with acute mental status change. Imaging and symptomatology consistent with possible encephalitis. The patient remains confused, responding to voice, repeating some of my questions back to me, but no meaningful conversation. He appears comfortable. OBJECTIVE: VITAL SIGNS: Stable, T-max 100.2. CHEST: Clear. HEART: Regular. ABDOMEN: Benign. NEUROLOGIC: Nonfocal as he moves all extremities. LABORATORY DATA: To date shows CSF protein with only 1 white blood cell. Again, as mentioned in history and physical, he had a very similar episode a couple of months ago at [facility]. He is noted to have a right renal tumor that has not changed over the last year or so in a 2.5 cm range and I see where Neurology has raised at least a question of paraneoplastic type response. ASSESSMENT: 1. Mental status change currently, working diagnosis of herpes encephalitis, although only 1 white cell is probably unlikely. 2. Diabetes. PLAN: Continue supportive care. Neuro help appreciated. Supportive care at this point in time. DNR per family request. WHITNEY/MELVINA DR: GARCIA/garrett TID: [id number]
[2020-12-07] MEDS ORDERED: levETIRAcetam 500 MG TABLET PO SCH (13:45)
--- NOTE | 2020-12-07 14:01 | NUR ---
SS following for discharge planning. SS reviewed pt chart and discussed with pt RN. Pt is from home with spouse and is currently on room air. Neurology following. Pt on IV Keppra. EEG today. Pt on IV Acyclovir. PT/OT ordered. SS will continue to follow for discharge planning.
--- NOTE | 2020-12-07 14:03 | EEG ---
DATE OF SERVICE: 12/07/2020 EEG #: [id number] OBJECTIVE: The patient is an 84-year-old male with altered mental status and bilateral temporal lobe lesions on MRI.: DESCRIPTION: This is a digital study. Electrodes are placed according to the international 10-20 system. Bipolar and referential montages are available. Activation procedures typically include hyperventilation and intermittent photic stimulation. INTERPRETATION: The waking background consists of 7-8 Hz, 20-50 microvolt activity, symmetrically distributed over parietooccipital regions and reactive to eye opening. There are periodic lateralizing epileptiform discharges focusing on the left anterior temporal region. Stage I sleep is achieved with normal electroencephalogram patterns. Hyperventilation and intermittent photic stimulation are noncontributory. IMPRESSION: This electroencephalogram with the patient awake and asleep is abnormal because of epileptic disturbance arising from the left temporal region. Thank you for letting us help with the patient's care. SUE DR: Silvia TID: [id number] CC: MARISELA RAMOS MD
[2020-12-07] MEDS: levETIRAcetam 500 MG in IV DEXTROSE 5% 100ML 100 ML IV SCH ×2 (14:40→20:30)
[2020-12-07 15:00] VITALS: BP 139/64
[2020-12-07 19:40] VITALS: BP 137/61
[2020-12-07 23:10] VITALS: BP 157/72
[2020-12-08 03:25] VITALS: BP 173/72
[2020-12-08 07:00] VITALS: BP 149/67
--- NOTE | 2020-12-08 08:22 | PN ---
DATE: 12/08/2020 LOCATION: He is in room 660. SUBJECTIVE: This 84-year-old male remains hospitalized with encephalopathy, felt currently due to encephalitis and possibly herpes encephalitis. He is definitely improved this morning, much more awake, alert and interactive, but still not his normal self by a long ways. He does recognize me as his doctor this morning and there are minimal amounts of lucid conversation. OBJECTIVE: VITAL SIGNS: Stable. He is afebrile. GENERAL: He is awake and alert, but remains confused. CHEST: Clear. HEART: Regular. ABDOMEN: Benign. Ongoing acyclovir for possible viral herpetic encephalitis. IMPRESSION: 1. Encephalopathy due to bilateral temporal lobe possible encephalitis. 2. Diabetes. PLAN: Continue present supportive care. If he continues to improve, expect he will regain lucidity. Neurology help appreciated. WHITNEY DR: Ana TID: [id number]
[2020-12-08] MEDS: levETIRAcetam 500 MG in IV DEXTROSE 5% 100ML 100 ML IV SCH ×2 (09:00→20:11)
[2020-12-08] MEDS: DEXTROSE 5% IV SCH ×2 (09:15→20:11)
[2020-12-08] MEDS: ACYCLOVIR SODIUM IV SCH ×2 (09:15→20:11)
--- NOTE | 2020-12-08 09:18 | PDOC ---
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 This type of course would be very unlikely in any type of encephalitis. Bilateral temporal lobe edema and diffusion restriction. This was also observed at [facility]. Lumbar puncture here shows 1 white blood cell, 0 red blood cells, glucose 116, protein 139.2. I doubt any type of acute encephalitis, paraneoplastic encephalitis, ongoing seizure activity. I wonder about a low- grade neoplasm. Past medical history of atrial fibrillation for which he is on Eliquis, DVT, left arm, type 2 diabetes, dysphagia after the hospitalization 2 months ago, 2.5 cm x 2.5 cm right renal mass, , acute ischemic event of the left arm, tonsi llectomy, cataract surgery, two back surgeries. Plan I have started levetiracetam Repeat electroencephalogram tomorrow Continue acyclovir until the herpes PCR comes back negative. I had a long discussion with the patient's . I do suggest a left anterior temporal brain biopsy which could be done stereotactically. Family wants to think it over and perhaps wait for the follow-up EEG study results. I have gone ahead and consulted Dr. Mcdonnell I have also considered transfer to tertiary care center or to the ICU, but patient is neurologically stable, albeit less talkative today. I have considered empiric steroids, IVIG, but do not wish to pursue immunosuppression without tissue biopsy. Rehabilitation modalities. Again, fully discussed with patient's . Objective Vital Signs Date Time Temp Pulse Resp B/P (MAP) Pulse Ox O2 Delivery O2 Flow Rate FiO2 12/08/20 07:00 98.1 69 18 149/67 (94) 95 Room Air 98.1 Intake and Output 12/08/20 07:00 Intake Total 0 ml Balance 0 ml Intake Oral 0 ml # Voids 6 PHYSICAL EXAM Alert. Oriented only to person. Doesn't follow commands PERRL. EOMI. CN: no focal findings. Muscle tone: normal. Muscle strength: 4/5 DTR: 2+ Plantar reflex: Flexor Gait: not examined in bed. Sensory exam: no abnormal findings. Cerebellar: Not cooperative Review of Relevant Review of [facility] [place] records: EEG on 10/06/2020 showed beta activity, consistent with medication use, no epileptic activity, specifically no mention of any temporal lobe epileptic a bnormalities as would be seen in herpes encephalitis or other temporal lobe encephalitis MRI brain, 10/03/2020, increased signal in the hippocampus temporal lobes bilaterally, left greater than right [facility] paraneoplastic encephalitis panel, all negative. Normal ferritin, B12, Covid Nephrology, neurology, neurosurgery, and urology saw him for right renal mass, they did not think this was neoplastic or related to the brain problems I have reviewed the following items megan (where applicable) has been applied. Labs Laboratory Tests Test 12/06/20 17:00 Glucose (Fingerstick) 151 mg/dL (70-99) Medications Current Medications Diphtheria/ Tetanus/Acell Pertussis (ADACEL TDap SYRINGE) 0.5 ml ONCE ONCE VAX IM Last administered on 12/05/20at 14:44; Start 12/05/20 at 12:00; Stop 12/05/20 at 12:03; Status DC Iohexol (Omnipaque 300 Mg/ml) 75 ml 1X ONCE IV Last administered on 12/05/20at 13:00; Start 12/05/20 at 12:30; Stop 12/05/20 at 12:31; Status DC Info (CONTRAST GIVEN -- Rx MONITORING) 1 each PRN DAILY PRN MC SEE COMMENTS; Start 12/05/20 at 12:30; Stop 12/07/20 at 12:29; Status DC Lorazepam (Ativan Inj) 0.5 mg 1X ONCE IVP Last administered on 12/05/20at 12:50; Start 12/05/20 at 13:00; Stop 12/05/20 at 13:01; Status DC Acyclovir Sodium 530 mg/Dextrose 110.6 ml @ 110.6 mls/ hr 1X ONCE IV Last administered on 12/05/20at 15:50; Start 12/05/20 at 15:00; Stop 12/05/20 at 15:59; Status DC Haloperidol Lactate (Haldol Inj) 5 mg 1X ONCE IVP Last administered on 12/05/20at 15:38; Start 12/05/20 at 15:45; Stop 12/05/20 at 15:46; Status DC Midazolam HCl (Versed) 2 mg STK-MED ONCE .ROUTE ; Start 12/05/20 at 15:51; Stop 12/05/20 at 15:52; Status DC Acyclovir Sodium 600 mg/Dextrose 262 ml @ 262 mls/hr Q12HR IV Last administered on 12/05/20at 23:42; Start 12/06/20 at 00:00; Stop 12/06/20 at 05:21; Status DC Acyclovir Sodium 600 mg/Dextrose 112 ml @ 112 mls/hr Q12HR IV Last administered on 12/07/20at 22:53; Start 12/06/20 at 09:00 Haloperidol Lactate (Haldol Inj) 3 mg PRN Q6HRS PRN IVP AGITATION Last administered on 12/06/20at 21:01; Start 12/06/20 at 10:00 Lorazepam (Ativan Inj) 1 mg PRN Q4HRS PRN IVP ANXIETY / AGITATION-1ST; Start 12/06/20 at 10:00 Lorazepam (Ativan Inj) 1 mg 1X ONCE IVP Last administered on 12/06/20at 10:07; Start 12/06/20 at 10:00; Stop 12/06/20 at 10:01; Status DC Levetiracetam (Keppra) 500 mg BID PO ; Start 12/07/20 at 13:45; Stop 12/07/20 at 13:43; Status DC Levetiracetam 500 mg/Dextrose 105 ml @ 420 mls/hr Q12HR IV Last administered on 12/07/20at 20:30; Start 12/07/20 at 14:30 Active Scripts Active Reported Fludrocortisone Acetate 0.1 Mg Tablet 0.1 Mg PO DAILY Eliquis (Apixaban) 5 Mg Tablet 5 Mg PO BIDWMEALS Metformin Hcl 1,000 Mg Tablet 1,000 Mg PO BIDWMEALS Ezetimibe 10 Mg Tablet 10 Mg PO HS Crestor (Rosuvastatin Calcium) 10 Mg Tablet 10 Mg PO HS Zetia (Ezetimibe) 10 Mg Tablet 10 Mg PO DAILY Vitals/I & O Vital Sign - Last 24 Hours 12/07/20 12/07/20 12/07/20 12/07/20 11:00 15:00 19:40 20:01 Temp 98.5 98.9 98.5 98.5 98.9 98.5 Pulse 103 69 64 Resp 20 16 18 B/P (MAP) 139/62 (87) 139/64 (89) 137/61 (86) Pulse Ox 97 96 96 O2 Delivery Room Air Room Air Room Air Room Air 12/07/20 12/08/20 12/08/20 23:10 03:25 07:00 Temp 97.8 97.4 98.1 97.8 97.4 98.1 Pulse 73 71 69 Resp 18 18 18 B/P (MAP) 157/72 (100) 173/72 (105) 149/67 (94) Pulse Ox 98 98 95 O2 Delivery Room Air Room Air Room Air Intake and Output 12/07/20 12/07/20 12/08/20 15:00 23:00 07:00 Intake Total 0 ml 0 ml 0 ml Balance 0 ml 0 ml 0 ml Justicifation of Admission Dx: Justifications for Admission: Justification of Admission Dx: N/A KATHRYN HALL MD Dec 08, 2020 09:18
[2020-12-08 11:00] VITALS: BP 170/71
--- NOTE | 2020-12-08 11:25 | NUR ---
SS following up with discharge planning. SS reviewed pt chart and discussed with pt RN. Pt is currently on room air. Neurology following. Pt on IV Keppra and IV Acyclovir. EEG tomorrow. Dr. Mcdonnell consulted. NPO. PT/OT ordered. SS will continue to follow for discharge planning.
[2020-12-08 15:00] VITALS: BP 162/72
[2020-12-08 15:28] LABS: WEST NILE IGG CSF Positive (Negative); WEST NILE IGM CSF Negative (Negative)
--- NOTE | 2020-12-08 16:47 | PDOC ---
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 This type of course would be very unlikely in any type of encephalitis. Bilateral temporal lobe edema and diffusion restriction. This was also observed at [facility]. Lumbar puncture here shows 1 white blood cell, 0 red blood cells, glucose 116, protein 139.2. I doubt any type of acute encephalitis, paraneoplastic encephalitis, ongoing seizure activity. I wonder about a low- grade neoplasm. Past medical history of atrial fibrillation for which he is on Eliquis, DVT, left arm, type 2 diabetes, dysphagia after the hospitalization 2 months ago, 2.5 cm x 2.5 cm right renal mass, acute ischemic event of the left arm, tonsill ectomy, cataract surgery, two back surgeries. on exam, sitting up in chair, working with PT, denies headache A and O to person and place, PLATT, Follows a few simple commands, speech clear, confused conversation, muscle strength 4/5 MRI with bilateral temporal lobe edema Await herpes PCR and repeat EEG Justifications for Admission Other Justification LUISANA OCHOA MD Dec 08, 2020 16:47
[2020-12-08 19:35] VITALS: BP 201/83
[2020-12-08 22:40] VITALS: BP 160/73
[2020-12-09 02:40] VITALS: BP 177/81
--- NOTE | 2020-12-09 06:21 | NUR ---
Patient refusing to keep monitor on. Patient has been very restless during the night. Patient confused but easily redirected.
[2020-12-09 07:00] VITALS: BP 167/74
[2020-12-09] MEDS: levETIRAcetam 500 MG in IV DEXTROSE 5% 100ML 100 ML IV SCH ×2 (08:25→21:02)
[2020-12-09] MEDS: ACYCLOVIR SODIUM IV SCH ×2 (09:00→21:42)
[2020-12-09] MEDS: DEXTROSE 5% IV SCH ×2 (09:00→21:42)
--- NOTE | 2020-12-09 09:34 | PN ---
DATE: 12/09/2020 DAILY PROGRESS NOTE LOCATION: He is in room 660. SUBJECTIVE: This 84-year-old male remains hospitalized with encephalopathy, of uncertain etiology at this point in time. He is much more talkative this morning still and wants to get out of bed and sit in the chair. He definitely is still confused as he is not completely aware of who I am until I let him know. Patient, if he has dementia, has developed in the last couple 3 months as there has never been any problems prior to his hospitalization at [facility], so I do not believe this is a progressive dementia. OBJECTIVE: VITAL SIGNS: Stable. He is afebrile. GENERAL: He is awake, alert, but remains confused. CHEST: Clear. HEART: Regular. ABDOMEN: Benign. Ongoing acyclovir for possible herpetic encephalitis. EEG yesterday shows periodic lateralizing epileptiform discharges arising from the left anterior temporal lobe and he has been started on Keppra for the same by neurology and neurosurgery has been consulted for possible brain biopsy. 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 IMPRESSION: 1. Encephalopathy, of uncertain etiology. Workup ongoing as described above. 2. Diabetes. PLAN: Continue supportive care. Continue acyclovir. Help of all consultants appreciated. GARCIA/DU/SUN DR: Ana TID: [id number]
--- NOTE | 2020-12-09 10:12 | PDOC ---
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 This type of course would be very unlikely in any type of encephalitis. Bilateral temporal lobe edema and diffusion restriction. This was also observed at [facility]. Lumbar puncture here shows 1 white blood cell, 0 red blood cells, glucose 116, protein 139.2. I doubt any type of acute encephalitis, paraneoplastic encephalitis, ongoing seizure activity. I wonder about a low- grade neoplasm. Past medical history of atrial fibrillation for which he is on Eliquis, DVT, left arm, type 2 diabetes, dysphagia after the hospitalization 2 months ago, 2.5 cm x 2.5 cm right renal mass, , acute ischemic event of the left arm, tonsillectomy, cataract surgery, two back surgeries. Plan Levetiracetam Swallow evaluation now that he is more alert Repeat electroencephalogram today Neurosurgery consult appreciated Continue acyclovir until the herpes PCR comes back negative. Discussed with the patient's . I do suggest a left anterior temporal brain biopsy. The family is encouraged to the patient is more alert when I saw him last night. I discussed that we really need to have a definitive diagnosis to help decide treatment. I would not start immunosuppression without a tissue biopsy. It would be helpful to know if this is a neoplasm to help with prognosis. But we could just follow him clinically and continue anticonvulsants. Rehabilitation modalities. Discussed with Dr. Evans Subjective No complaints Objective Vital Signs Date Time Temp Pulse Resp B/P (MAP) Pulse Ox O2 Delivery O2 Flow Rate FiO2 12/09/20 07:00 97.6 86 18 167/74 (105) 96 Room Air 97.6 Intake and Output 12/09/20 07:00 Intake Total 0 ml Balance 0 ml Intake Oral 0 ml # Voids 5 PHYSICAL EXAM Alert. Oriented only to person. Talkative, tells me about his trip to [facility], follows commands, has mittens on PERRL. EOMI. CN: no focal findings. Muscle tone: normal. Muscle strength: 4/5 DTR: 2+ Plantar reflex: Flexor Gait: not examined in bed. Sensory exam: no abnormal findings. Cerebellar: Not cooperative Review of Relevant I have reviewed the following items megan (where applicable) has been applied. Review of [facility] [place] records: EEG on 10/06/2020 showed beta activity, consistent with medication use, no epileptic activity, specifically no mention of any temporal lobe epileptic abnormalities as would be seen in herpes encephalitis or other temporal lobe encephalitis MRI brain, 10/03/2020, increased signal in the hippocampus temporal lobes bilaterally, left greater than right [facility] paraneoplastic encephalitis panel, all negative. Normal ferritin, B12, Covid Nephrology, neurology, neurosurgery, and urology saw him for right renal mass, they did not think this was neoplastic or related to the brain problems Medications Current Medications Diphtheria/ Tetanus/Acell Pertussis (ADACEL TDap SYRINGE) 0.5 ml ONCE ONCE VAX IM Last administered on 12/05/20at 14:44; Start 12/05/20 at 12:00; Stop 12/05/20 at 12:03; Status DC Iohexol (Omnipaque 300 Mg/ml) 75 ml 1X ONCE IV Last administered on 12/05/20at 13:00; Start 12/05/20 at 12:30; Stop 12/05/20 at 12:31; Status DC Info (CONTRAST GIVEN -- Rx MONITORING) 1 each PRN DAILY PRN MC SEE COMMENTS; Start 12/05/20 at 12:30; Stop 12/07/20 at 12:29; Status DC Lorazepam (Ativan Inj) 0.5 mg 1X ONCE IVP Last administered on 12/05/20at 12:50; Start 12/05/20 at 13:00; Stop 12/05/20 at 13:01; Status DC Acyclovir Sodium 530 mg/Dextrose 110.6 ml @ 110.6 mls/ hr 1X ONCE IV Last administered on 12/05/20at 15:50; Start 12/05/20 at 15:00; Stop 12/05/20 at 15:59; Status DC Haloperidol Lactate (Haldol Inj) 5 mg 1X ONCE IVP Last administered on 12/05at 15:38; Start 12/05/20 at 15:45; Stop 12/05/20 at 15:46; Status DC Midazolam HCl (Versed) 2 mg STK-MED ONCE .ROUTE ; Start 12/05/20 at 15:51; Stop 12/05/20 at 15:52; Status DC Acyclovir Sodium 600 mg/Dextrose 262 ml @ 262 mls/hr Q12HR IV Last administered on 12/05/20at 23:42; Start 12/06/20 at 00:00; Stop 12/06/20 at 05:21; Status DC Acyclovir Sodium 600 mg/Dextrose 112 ml @ 112 mls/hr Q12HR IV Last administered on 12/09/20at 09:00; Start 12/06/20 at 09:00 Haloperidol Lactate (Haldol Inj) 3 mg PRN Q6HRS PRN IVP AGITATION Last administered on 12/06/20at 21:01; Start 12/06/20 at 10:00 Lorazepam (Ativan Inj) 1 mg PRN Q4HRS PRN IVP ANXIETY / AGITATION-1ST; Start 12/06/20 at 10:00 Lorazepam (Ativan Inj) 1 mg 1X ONCE IVP Last administered on 12/06/20at 10:07; Start 12/06/20 at 10:00; Stop 12/06/20 at 10:01; Status DC Levetiracetam (Keppra) 500 mg BID PO ; Start 12/07/20 at 13:45; Stop 12/07/20 at 13:43; Status DC Levetiracetam 500 mg/Dextrose 105 ml @ 420 mls/hr Q12HR IV Last administered on 12/09/20at 08:25; Start 12/07/20 at 14:30 Active Scripts Active Reported Fludrocortisone Acetate 0.1 Mg Tablet 0.1 Mg PO DAILY Eliquis (Apixaban) 5 Mg Tablet 5 Mg PO BIDWMEALS Metformin Hcl 1,000 Mg Tablet 1,000 Mg PO BIDWMEALS Ezetimibe 10 Mg Tablet 10 Mg PO HS Crestor (Rosuvastatin Calcium) 10 Mg Tablet 10 Mg PO HS Zetia (Ezetimibe) 10 Mg Tablet 10 Mg PO DAILY Vitals/I & O Vital Sign - Last 24 Hours 12/08/20 12/08/20 12/08/20 12/08/20 11:00 15:00 19:35 20:00 Temp 96.4 97.9 97.7 96.4 97.9 97.7 Pulse 72 69 72 Resp 18 18 18 B/P (MAP) 170/71 (104) 162/72 (102) 201/83 (122) Pulse Ox 94 97 99 O2 Delivery Room Air Room Air Room Air Room Air 12/08/20 12/09/20 12/09/20 22:40 02:40 07:00 Temp 97.1 97.2 97.6 97.1 97.2 97.6 Pulse 78 70 86 Resp 18 18 18 B/P (MAP) 160/73 (102) 177/81 (113) 167/74 (105) Pulse Ox 94 96 96 O2 Delivery Room Air Room Air Room Air Intake and Output 12/08/20 12/08/20 12/09/20 15:00 23:00 07:00 Intake Total 0 ml Balance 0 ml Justicifation of Admission Dx: Justifications for Admission: Justification of Admission Dx: N/A KATHRYN HALL MD Dec 09, 2020 10:12
[2020-12-09] MEDS: IV 1/2 NORMAL SALINE 1,000 ML IV SCH (10:45)
[2020-12-09 11:00] VITALS: BP 126/57
--- NOTE | 2020-12-09 13:26 | EEG ---
DATE OF SERVICE: 12/09/2020 ELECTROENCEPHALOGRAM REPORT EEG NUMBER: [id number] OBJECTIVE: The patient is an 84-year-old male with altered mental status. Previous study on 12/07/2020 showed periodic lateralizing epileptiform discharges arising from the left anterior temporal lobe. The patient has been started on levetiracetam since then and is clinically better. DESCRIPTION: This is a digital study. Electrodes were placed according to the international 10-20 system. Bipolar and referential montages are available. Activation procedures typically include hyperventilation and intermittent photic stimulation. INTERPRETATION: The waking background consists of 7-8 Hz, 20-50 microvolt activity, symmetrically distributed over parietooccipital regions and reactive to eye opening. There are occasional left temporal sharp waves with phase reversal over at electrode F7. There no longer is periodic lateralizing epileptiform discharges. Stage 1 sleep is achieved with normal electroencephalogram patterns. Hyperventilation and intermittent photic stimulation are noncontributory. IMPRESSION: This electroencephalogram with the patient awake and asleep is abnormal because of left anterior temporal epileptic activity, markedly improved from the previous study of 2 days ago. There is also a diffuse disturbance of cerebral activity consistent with any of a variety of toxic or metabolic encephalopathies. Thank you for letting us help with the patient's care. EPIFANIO DR: Silvia TID: [id number]
[2020-12-09 15:00] VITALS: BP 176/79
--- NOTE | 2020-12-09 15:01 | NUR ---
SS following up with discharge planning. SS reviewed pt chart and discussed with pt RN. Pt is currently on room air. Positive for West Nile. Neurology following. Neurosurgery consulted. Pt on IV Keppra and IV Acyclovir. NPO. ST following. PT/OT recommended group home unit. SS will continue to follow for discharge planning.
[2020-12-09 15:14] LABS: ALBUMIN,SERUM 4.7 g/dL (3.6-4.6); CSF IGG INDEX 0.7 (0.0-0.7)
[2020-12-09 18:36] VITALS: BP 174/91
[2020-12-09 23:00] VITALS: BP 142/71
[2020-12-10] MEDS: IV 1/2 NORMAL SALINE 1,000 ML IV SCH (01:51)
[2020-12-10 03:00] VITALS: BP 182/84
[2020-12-10 07:00] VITALS: BP 180/84
[2020-12-10] MEDS: levETIRAcetam 500 MG in IV DEXTROSE 5% 100ML 100 ML IV SCH ×2 (08:20→20:27)
[2020-12-10] MEDS: ACYCLOVIR SODIUM IV SCH ×2 (10:20→21:04)
[2020-12-10] MEDS: DEXTROSE 5% IV SCH ×2 (10:20→21:04)
[2020-12-10 10:48] VITALS: BP 173/84
--- NOTE | 2020-12-10 13:13 | PDOC ---
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 This type of course would be very unlikely in any type of encephalitis. Bilateral temporal lobe edema and diffusion restriction. This was also observed at [facility]. Lumbar puncture here shows 1 white blood cell, 0 red blood cells, glucose 116, protein 139.2. I doubt any type of acute encephalitis, paraneoplastic encephalitis, ongoing seizure activity. I wonder about a low- grade neoplasm. Past medical history of atrial fibrillation for which he is on Eliquis, DVT, left arm, type 2 diabetes, dysphagia after the hospitalization 2 months ago, 2.5 cm x 2.5 cm right renal mass, acute ischemic event of the left arm, tonsillectomy, cataract surgery, two back surgeries. Plan Levetiracetam Continue acyclovir until the herpes PCR comes back negative. I still recommend a left anterior temporal brain biopsy. Rehabilitation modalities. Switch IV fluid to peripheral nutrition I left a message with the patient's Subjective None Objective Vital Signs Date Time Temp Pulse Resp B/P (MAP) Pulse Ox O2 Delivery O2 Flow Rate FiO2 12/10/20 10:48 97.8 78 18 173/84 (113) 96 Room Air 97.8 Intake and Output 12/10/20 07:00 Intake Total 0 ml Output Total 150 ml Balance -150 ml Intake Oral 0 ml Output Urine Total 150 ml # Voids 4 PHYSICAL EXAM Alert. Oriented only to person. Not as lucid today, does not follow commands. Has mittens on PERRL. EOMI. CN: no focal findings. Muscle tone: normal. Muscle strength: 4/5 DTR: 2+ Plantar reflex: Flexor Gait: not examined in bed. Sensory exam: no abnormal findings. Cerebellar: Not cooperative Review of Relevant I have reviewed the following items megan (where applicable) has been applied. Review of [facility] [place] [place] records: EEG on 10/06/2020 showed beta activity, consistent with medication use, no epileptic activity, specifically no mention of any temporal lobe epileptic abnormalities as would be seen in herpes encephalitis or other temporal lobe encephalitis MRI brain, 10/03/2020, increased signal in the hippocampus temporal lobes bilaterally, left greater than right [facility] paraneoplastic encephalitis panel, all negative. Normal ferritin, B12, Covid Nephrology, neurology, neurosurgery, and urology saw him for right renal mass, they did not think this was neoplastic or related to the brain problems Medications Current Medications Diphtheria/ Tetanus/Acell Pertussis (ADACEL TDap SYRINGE) 0.5 ml ONCE ONCE VAX IM Last administered on 12/05/20at 14:44; Start 12/05/20 at 12:00; Stop 12/05/20 at 12:03; Status DC Iohexol (Omnipaque 300 Mg/ml) 75 ml 1X ONCE IV Last administered on 12/05/20at 13:00; Start 12/05/20 at 12:30; Stop 12/05/20 at 12:31; Status DC Info (CONTRAST GIVEN -- Rx MONITORING) 1 each PRN DAILY PRN MC SEE COMMENTS; Start 12/05/20 at 12:30; Stop 12/07/20 at 12:29; Status DC Lorazepam (Ativan Inj) 0.5 mg 1X ONCE IVP Last administered on 12/05/20at 12:50; Start 12/05/20 at 13:00; Stop 12/05/20 at 13:01; Status DC Acyclovir Sodium 530 mg/Dextrose 110.6 ml @ 110.6 mls/ hr 1X ONCE IV Last administered on 12/05/20at 15:50; Start 12/05/20 at 15:00; Stop 12/05/20 at 15:59; Status DC Haloperidol Lactate (Haldol Inj) 5 mg 1X ONCE IVP Last administered on 12/05/20at 15:38; Start 12/05/20 at 15:45; Stop 12/05/20 at 15:46; Status DC Midazolam HCl (Versed) 2 mg STK-MED ONCE .ROUTE ; Start 12/05/20 at 15:51; Stop 12/05/20 at 15:52; Status DC Acyclovir Sodium 600 mg/Dextrose 262 ml @ 262 mls/hr Q12HR IV Last administered on 12/05/20at 23:42; Start 12/06/20 at 00:00; Stop 12/06/20 at 05:21; Status DC Acyclovir Sodium 600 mg/Dextrose 112 ml @ 112 mls/hr Q12HR IV Last administered on 12/10/20at 10:20; Start 12/06/20 at 09:00 Haloperidol Lactate (Haldol Inj) 3 mg PRN Q6HRS PRN IVP AGITATION Last administered on 12/06/20at 21:01; Start 12/06/20 at 10:00 Lorazepam (Ativan Inj) 1 mg PRN Q4HRS PRN IVP ANXIETY / AGITATION-1ST Last administered on 12/09/20at 14:56; Start 12/06/20 at 10:00 Lorazepam (Ativan Inj) 1 mg 1X ONCE IVP Last administered on 12/06/20at 10:07; Start 12/06/20 at 10:00; Stop 12/06/20 at 10:01; Status DC Levetiracetam (Keppra) 500 mg BID PO ; Start 12/07/20 at 13:45; Stop 12/07/20 at 13:43; Status DC Levetiracetam 500 mg/Dextrose 105 ml @ 420 mls/hr Q12HR IV Last administered on 12/10/20at 08:20; Start 12/07/20 at 14:30 Sodium Chloride 1,000 ml @ 75 mls/hr [id number] IV Last administered on 12/10/20at 01:51; Start 12/09/20 at 10:45 Active Scripts Active Reported Fludrocortisone Acetate 0.1 Mg Tablet 0.1 Mg PO DAILY Eliquis (Apixaban) 5 Mg Tablet 5 Mg PO BIDWMEALS Metformin Hcl 1,000 Mg Tablet 1,000 Mg PO BIDWMEALS Ezetimibe 10 Mg Tablet 10 Mg PO HS Crestor (Rosuvastatin Calcium) 10 Mg Tablet 10 Mg PO HS Zetia (Ezetimibe) 10 Mg Tablet 10 Mg PO DAILY Vitals/I & O Vital Sign - Last 24 Hours 12/09/20 12/09/20 12/09/20 12/09/20 15:00 18:36 20:20 23:00 Temp 97.5 97.8 97.3 97.5 97.8 97.3 Pulse 79 90 109 Resp 18 18 19 B/P (MAP) 176/79 (111) 174/91 (118) 142/71 (94) Pulse Ox 97 98 97 O2 Delivery Room Air Room Air Room Air Room Air 12/09/20 12/10/20 12/10/20 12/10/20 23:15 03:00 07:00 08:06 Temp 97.5 97.4 97.5 97.4 Pulse 89 83 Resp 18 18 B/P (MAP) 182/84 (116) 180/84 (116) Pulse Ox 99 98 O2 Delivery Room Air Room Air Room Air Room Air 12/10/20 10:48 Temp 97.8 97.8 Pulse 78 Resp 18 B/P (MAP) 173/84 (113) Pulse Ox 96 O2 Delivery Room Air Intake and Output 12/09/20 12/09/20 12/10/20 15:00 23:00 07:00 Intake Total 0 ml 0 ml 0 ml Output Total 150 ml Balance -150 ml 0 ml 0 ml Justicifation of Admission Dx: Justifications for Admission: Justification of Admission Dx: N/A KATHRYN HALL MD Dec 10, 2020 13:13
[2020-12-10] MEDS: AA 4.25 %/CALCIUM/LYTES/D5W 1,000 ML IV SCH (13:45)
--- NOTE | 2020-12-10 13:47 | NUR ---
SS following up with discharge planning. SS reviewed pt chart and discussed with pt RN. Pt is currently on room air. Pt on IV Keppra and IV Acyclovir. PT/OT recommended long term unit. Pt NPO and on Clinimix. ST following and unable to do Video Swallow today due to pt's confusion and weakness. ST will revisit with pt tomorrow. SS met with pt's spouse in room to discuss discharge planning. Pt reported that she will not send pt to a facility and would prefer to take pt home with services. Pt's spouse reported that she is willing to hire private duty caregivers to assist. Pt reported that she would need a hospital bed. Pt's spouse reported that she would like to speak with Dr. Evans and ST tomorrow and would like SS to revisit with her tomorrow. SS will continue to follow for discharge planning.
[2020-12-10 15:00] VITALS: BP 176/84
[2020-12-10 19:00] VITALS: BP 161/79
--- NOTE | 2020-12-10 20:57 | PN ---
DATE: 12/10/2020 LOCATION: He is in room 660. SUBJECTIVE: This 84-year-old male remains hospitalized with encephalopathy, of uncertain etiology at this point in time. He remains more talkative this morning, but certainly is still very confused. OBJECTIVE: VITAL SIGNS: Stable. He is afebrile. GENERAL: He is awake, alert, but confused. CHEST: Clear. HEART: Regular. ABDOMEN: Benign. 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 EEG shows no lateralizing epileptiform discharges from his left anterior temporal lobe and a repeat EEG is to be done at this point on Keppra by neurology. I have to say I do not see massive improvement since Keppra has been added although yesterday morning I thought I might have seen something. Neurosurgery has seen him with consideration of the left temporal lobe brain biopsy stereotactic cholecystectomy. CSF again is positive for West Nile virus IgG and we will defer to neuro for significance of the same. IMPRESSION: 1. Encephalopathy of uncertain etiology with workup ongoing. 2. Diabetes. PLAN: Continue acyclovir, supportive care. Help of all consultants appreciated. XIAO DR: Ana TID: [id number]
[2020-12-10 23:00] VITALS: BP 141/82
[2020-12-11 03:00] VITALS: BP 174/83
[2020-12-11] MEDS: AA 4.25 %/CALCIUM/LYTES/D5W 1,000 ML IV SCH ×2 (04:33→16:09)
[2020-12-11 07:00] VITALS: BP 173/75
[2020-12-11] MEDS: levETIRAcetam 500 MG in IV DEXTROSE 5% 100ML 100 ML IV SCH ×2 (08:28→21:19)
[2020-12-11] MEDS: DEXTROSE 5% IV SCH (09:00)
[2020-12-11] MEDS: ACYCLOVIR SODIUM IV SCH (09:00)
--- NOTE | 2020-12-11 09:05 | PDOC ---
PROGRESS NOTES Date of Service DATE: 12/11/20 TIME: 08:54 Assessment Problems Medical Problems: (1) Abnormal CT of brain Status: Acute (2) Abrasion of head Status: Acute (3) Altered mental status Status: Acute (4) Microcytic anemia Status: Acute (5) Need for Tdap vaccination Status: Acute Bilateral temporal lobe edema and diffusion restriction. This was also observed at [facility]. Lumbar puncture here shows 1 white blood cell, 0 red blood cells, glucose 116, protein 139.2. I doubt any type of acute encephalitis, paraneoplastic encephalitis, ongoing seizure activity. I wonder about a low- grade neoplasm. EEG showed periodic lateralizing epileptiform discharges arising from the left anterior temporal lobe, 12/07, improved on 12/09 EEG study West Nile CSF IgG positive, IgM negative, doubt acute West Nile encephalitis HSV CSF PCR negative Possible concussion Prior dementia Failed his swallow study He was hospitalized at 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 This type of course would be very unlikely in any type of encephalitis. Past medical history of atrial fibrillation for which he is on Eliquis, DVT, left arm, type 2 diabetes, dysphagia after the hospitalization 2 months ago, 2.5 cm x 2.5 cm right renal mass, acute ischemic event of the left arm, tonsillectomy, cataract surgery, two back surgeries. Plan Levetiracetam Discontinue acyclovir Family is willing to proceed with left anterior temporal brain biopsy. Rehabilitation modalities. Switched IV fluid to peripheral nutrition Discussed with patient's and son Subjective None Objective Vital Signs Date Time Temp Pulse Resp B/P (MAP) Pulse Ox O2 Delivery O2 Flow Rate FiO2 12/11/20 07:00 96.8 75 20 173/75 (107) 96 Room Air 96.8 Intake and Output 12/11/20 07:00 Intake Total 0 ml Output Total 150 ml Balance -150 ml Intake Oral 0 ml Output Urine Total 150 ml # Voids 1 PHYSICAL EXAM Alert. Oriented only to person. Eyes are closed, he does follow a few commands, a little bit better than yesterday. Has mittens on PERRL. EOMI. CN: no focal findings. Muscle tone: normal. Muscle strength: 4/5 DTR: 2+ Plantar reflex: Flexor Gait: not examined in bed. Sensory exam: no abnormal findings. Cerebellar: Not cooperative Review of Relevant I have reviewed the following items megan (where applicable) has been applied. Review of [facility] records: EEG on 10/06/2020 showed beta activity, consistent with medication use, no epileptic activity, specifically no mention of any temporal lobe epileptic a bnormalities as would be seen in herpes encephalitis or other temporal lobe encephalitis MRI brain, 10/03/2020, increased signal in the hippocampus temporal lobes bilaterally, left greater than right [facility] paraneoplastic encephalitis panel, all negative. Normal ferritin, B12, Covid Nephrology, neurology, neurosurgery, and urology saw him for right renal mass, they did not think this was neoplastic or related to the brain problems Medications Current Medications Diphtheria/ Tetanus/Acell Pertussis (ADACEL TDap SYRINGE) 0.5 ml ONCE ONCE VAX IM Last administered on 12/05/20at 14:44; Start 12/05/20 at 12:00; Stop 12/05/20 at 12:03; Status DC Iohexol (Omnipaque 300 Mg/ml) 75 ml 1X ONCE IV Last administered on 12/05/20at 13:00; Start 12/05/20 at 12:30; Stop 12/05/20 at 12:31; Status DC Info (CONTRAST GIVEN -- Rx MONITORING) 1 each PRN DAILY PRN MC SEE COMMENTS; Start 12/05/20 at 12:30; Stop 12/07/20 at 12:29; Status DC Lorazepam (Ativan Inj) 0.5 mg 1X ONCE IVP Last administered on 12/05/20at 12:50; Start 12/05/20 at 13:00; Stop 12/05/20 at 13:01; Status DC Acyclovir Sodium 530 mg/Dextrose 110.6 ml @ 110.6 mls/ hr 1X ONCE IV Last administered on 12/05/20at 15:50; Start 12/05/20 at 15:00; Stop 12/05/20 at 15:59; Status DC Haloperidol Lactate (Haldol Inj) 5 mg 1X ONCE IVP Last administered on 12/05/20at 15:38; Start 12/05/20 at 15:45; Stop 12/05/20 at 15:46; Status DC Midazolam HCl (Versed) 2 mg STK-MED ONCE .ROUTE ; Start 12/05/20 at 15:51; Stop 12/05/20 at 15:52; Status DC Acyclovir Sodium 600 mg/Dextrose 262 ml @ 262 mls/hr Q12HR IV Last administered on 12/05/20at 23:42; Start 12/06/20 at 00:00; Stop 12/06/20 at 05:21; Status DC Acyclovir Sodium 600 mg/Dextrose 112 ml @ 112 mls/hr Q12HR IV Last administered on 12/10/20at 21:04; Start 12/06/20 at 09:00 Haloperidol Lactate (Haldol Inj) 3 mg PRN Q6HRS PRN IVP AGITATION Last administered on 12/06/20at 21:01; Start 12/06/20 at 10:00 Lorazepam (Ativan Inj) 1 mg PRN Q4HRS PRN IVP ANXIETY / AGITATION-1ST Last administered on 12/09/20at 14:56; Start 12/06/20 at 10:00 Lorazepam (Ativan Inj) 1 mg 1X ONCE IVP Last administered on 12/06/20at 10:07; Start 12/06/20 at 10:00; Stop 12/06/20 at 10:01; Status DC Levetiracetam (Keppra) 500 mg BID PO ; Start 12/07/20 at 13:45; Stop 12/07/20 at 13:43; Status DC Levetiracetam 500 mg/Dextrose 105 ml @ 420 mls/hr Q12HR IV Last administered on 12/11/20at 08:28; Start 12/07/20 at 14:30 Sodium Chloride 1,000 ml @ 75 mls/hr [id number] IV Last administered on 12/10/20at 01:51; Start 12/09/20 at 10:45; Stop 12/10/20 at 13:37; Status DC Amino Acids/ Electrolytes/ Dextrose 1,000 ml @ 80 mls/hr [id number] IV Last administered on 12/11/20at 04:33; Start 12/10/20 at 13:45 Active Scripts Active Reported Fludrocortisone Acetate 0.1 Mg Tablet 0.1 Mg PO DAILY Eliquis (Apixaban) 5 Mg Tablet 5 Mg PO BIDWMEALS Metformin Hcl 1,000 Mg Tablet 1,000 Mg PO BIDWMEALS Ezetimibe 10 Mg Tablet 10 Mg PO HS Crestor (Rosuvastatin Calcium) 10 Mg Tablet 10 Mg PO HS Zetia (Ezetimibe) 10 Mg Tablet 10 Mg PO DAILY Vitals/I & O Vital Sign - Last 24 Hours 12/10/20 12/10/20 12/10/20 12/10/20 10:48 15:00 19:00 19:55 Temp 97.8 97.6 97.6 97.8 97.6 97.6 Pulse 78 84 79 Resp 18 18 18 B/P (MAP) 173/84 (113) 176/84 (114) 161/79 (106) Pulse Ox 96 96 98 O2 Delivery Room Air Room Air Room Air Room Air 12/10/20 12/11/20 12/11/20 23:00 03:00 07:00 Temp 97.6 97.5 96.8 97.6 97.5 96.8 Pulse 92 75 75 Resp 16 16 20 B/P (MAP) 141/82 (101) 174/83 (113) 173/75 (107) Pulse Ox 97 98 96 O2 Delivery Room Air Room Air Room Air Intake and Output 12/10/20 12/10/20 12/11/20 15:00 23:00 07:00 Intake Total 0 ml 0 ml 0 ml Output Total 150 ml Balance -150 ml 0 ml 0 ml Justicifation of Admission Dx: Justifications for Admission: Justification of Admission Dx: N/A KATHRYN HALL MD Dec 11, 2020 09:05
--- NOTE | 2020-12-11 09:10 | PN ---
DATE: 12/11/2020 LOCATION: He is in room 660. SUBJECTIVE: This 84-year-old male remains hospitalized, encephalopathy of uncertain etiology. He remains more talkative, but still very confused. Son and are present and are agreeable to the brain biopsy to help guide therapy. I had discussed the same with Dr. Schmidt. OBJECTIVE: VITAL SIGNS: Stable. He is afebrile. GENERAL: Awake, alert, confused. CHEST: Clear. HEART: Regular. ABDOMEN: Benign. IMPRESSION: 1. Encephalopathy of uncertain etiology with ongoing workup. 2. Diabetes. PLAN: Continue acyclovir, supportive care, hopefully brain biopsy sometime today, so we can further guide directed therapy for this problem. [place] DR: Ana TID: [id number]
[2020-12-11 11:00] VITALS: BP 152/74
--- NOTE | 2020-12-11 14:00 | NUR ---
SS following up with discharge planning. SS reviewed pt chart and discussed with pt RN. Pt is currently on room air. Neurology following. Pt on Clinimix and IV Keppra. Neurosurgery consulted. Temporal Biopsy scheduled for 12/15/2020. NPO. ST following. Pt's spouse reported that she does not want a PEG tube. PT/OT recommended nursing home unit. Pt's spouse declining nursing home unit at this time and reported that she is discussing with family and will pay for private duty services. Pt's spouse wants a hospital bed on discharge. SS will continue to follow for discharge planning.
[2020-12-11 15:00] VITALS: BP 133/66
[2020-12-11 19:25] VITALS: BP 171/85
[2020-12-11 23:17] VITALS: BP 140/65
[2020-12-12 03:30] VITALS: BP 187/91
[2020-12-12] MEDS: AA 4.25 %/CALCIUM/LYTES/D5W 1,000 ML IV SCH ×2 (03:59→18:09)
[2020-12-12 07:53] VITALS: BP 135/64
[2020-12-12] MEDS: levETIRAcetam 500 MG in IV DEXTROSE 5% 100ML 100 ML IV SCH ×2 (09:08→20:04)
--- NOTE | 2020-12-12 09:19 | PDOC ---
Provider Note Date of Service: DATE: 12/12/20 TIME: 09:18 Provider Note sleepy but nonfocal, likely from keppra- exam same- check esr to r/o vasculitis component- bx pending Justifications for Admission Other Justification AUGUSTINE HARRISON MD Dec 12, 2020 09:19
[2020-12-12 10:40] VITALS: BP 136/65
--- NOTE | 2020-12-12 13:37 | PDOC ---
PROGRESS NOTES Date of Service DATE: 12/12/20 TIME: 13:33 Assessment Problems Medical Problems: (1) Abnormal CT of brain Status: Acute (2) Abrasion of head Status: Acute (3) Altered mental status Status: Acute (4) Microcytic anemia Status: Acute (5) Need for Tdap vaccination Status: Acute Bilateral temporal lobe edema and diffusion restriction. This was also observed at [facility]. Lumbar puncture here shows 1 white blood cell, 0 red blood cells, glucose 116, protein 139.2. I doubt any type of acute encephalitis, paraneoplastic encephalitis, ongoing seizure activity. I wonder about a low- grade neoplasm. 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 This type of course would be very unlikely in any type of encephalitis. Past medical history of atrial fibrillation for which he is on Eliquis, DVT, left arm, type 2 diabetes, dysphagia after the hospitalization 2 months ago, 2.5 cm x 2.5 cm right renal mass, acute ischemic event of the left arm, tonsillectomy, cataract surgery, two back surgeries. Plan Levetiracetam Discontinue acyclovir Family is willing to proceed with left anterior temporal brain biopsy, Dr. Mcdonnell can do on 12/15. Rehabilitation modalities. Switched IV fluid to peripheral nutrition Discussed with patient's Subjective Has had intermittent mild headache Objective Vital Signs Date Time Temp Pulse Resp B/P (MAP) Pulse Ox O2 Delivery O2 Flow Rate FiO2 12/12/20 10:40 96.6 77 20 136/65 (88) 95 Room Air 96.6 12/12/20 07:53 2.0 Intake and Output 12/12/20 07:00 Intake Total 0 ml Balance 0 ml Intake Oral 0 ml # Voids 1 PHYSICAL EXAM Sleepy, but alerts easily. Oriented only to person. Follows commands. Has mittens on PERRL. EOMI. CN: no focal findings. Muscle tone: normal. Muscle strength: 4/5 DTR: 2+ Plantar reflex: Flexor Gait: not examined in bed. Sensory exam: no abnormal findings. Cerebellar: Not cooperative Review of Relevant I have reviewed the following items megan (where applicable) has been applied. Labs Laboratory Tests Test 12/12/20 10:51 Erythrocyte Sedimentation Rate 20 (0-15) Laboratory Tests Test 12/12/20 10:51 Erythrocyte Sedimentation Rate 20 (0-15) Medications Current Medications Diphtheria/ Tetanus/Acell Pertussis (ADACEL TDap SYRINGE) 0.5 ml ONCE ONCE VAX IM Last administered on 12/05/20at 14:44; Start 12/05/20 at 12:00; Stop 12/05/20 at 12:03; Status DC Iohexol (Omnipaque 300 Mg/ml) 75 ml 1X ONCE IV Last administered on 12/05/20at 13:00; Start 12/05/20 at 12:30; Stop 12/05/20 at 12:31; Status DC Info (CONTRAST GIVEN -- Rx MONITORING) 1 each PRN DAILY PRN MC SEE COMMENTS; Start 12/05/20 at 12:30; Stop 12/07/20 at 12:29; Status DC Lorazepam (Ativan Inj) 0.5 mg 1X ONCE IVP Last administered on 12/05/20at 12:50; Start 12/05/20 at 13:00; Stop 12/05/20 at 13:01; Status DC Acyclovir Sodium 530 mg/Dextrose 110.6 ml @ 110.6 mls/ hr 1X ONCE IV Last administered on 12/05/20at 15:50; Start 12/05/20 at 15:00; Stop 12/05/20 at 15:59; Status DC Haloperidol Lactate (Haldol Inj) 5 mg 1X ONCE IVP Last administered on 12/05/20at 15:38; Start 12/05/20 at 15:45; Stop 12/05/20 at 15:46; Status DC Midazolam HCl (Versed) 2 mg STK-MED ONCE .ROUTE ; Start 12/05/20 at 15:51; Stop 12/05/20 at 15:52; Status DC Acyclovir Sodium 600 mg/Dextrose 262 ml @ 262 mls/hr Q12HR IV Last administered on 12/05/20at 23:42; Start 12/06/20 at 00:00; Stop 12/06/20 at 05:21; Status DC Acyclovir Sodium 600 mg/Dextrose 112 ml @ 112 mls/hr Q12HR IV Last administered on 12/11/20at 09:00; Start 12/06/20 at 09:00; Stop 12/11/20 at 09:06; Status DC Haloperidol Lactate (Haldol Inj) 3 mg PRN Q6HRS PRN IVP AGITATION Last administered on 12/06/20at 21:01; Start 12/06/20 at 10:00 Lorazepam (Ativan Inj) 1 mg PRN Q4HRS PRN IVP ANXIETY / AGITATION-1ST Last administered on 12/11/20at 16:31; Start 12/06/20 at 10:00 Lorazepam (Ativan Inj) 1 mg 1X ONCE IVP Last administered on 12/06/20at 10:07; Start 12/06/20 at 10:00; Stop 12/06/20 at 10:01; Status DC Levetiracetam (Keppra) 500 mg BID PO ; Start 12/07/20 at 13:45; Stop 12/07/20 at 13:43; Status DC Levetiracetam 500 mg/Dextrose 105 ml @ 420 mls/hr Q12HR IV Last administered on 12/12/20at 09:08; Start 12/07/20 at 14:30 Sodium Chloride 1,000 ml @ 75 mls/hr [id number] IV Last administered on 12/10/20at 01:51; Start 12/09/20 at 10:45; Stop 12/10/20 at 13:37; Status DC Amino Acids/ Electrolytes/ Dextrose 1,000 ml @ 80 mls/hr [id number] IV Last administered on 12/12/20at 03:59; Start 12/10/20 at 13:45 Active Scripts Active Reported Fludrocortisone Acetate 0.1 Mg Tablet 0.1 Mg PO DAILY Eliquis (Apixaban) 5 Mg Tablet 5 Mg PO BIDWMEALS Metformin Hcl 1,000 Mg Tablet 1,000 Mg PO BIDWMEALS Ezetimibe 10 Mg Tablet 10 Mg PO HS Crestor (Rosuvastatin Calcium) 10 Mg Tablet 10 Mg PO HS Zetia (Ezetimibe) 10 Mg Tablet 10 Mg PO DAILY Vitals/I & O Vital Sign - Last 24 Hours 12/11/20 12/11/20 12/11/20 12/11/20 15:00 19:25 19:39 23:17 Temp 96.2 97.1 97.6 96.2 97.1 97.6 Pulse 72 76 71 Resp 22 21 B/P (MAP) 133/66 (88) 171/85 (113) 140/65 (90) Pulse Ox 95 94 96 O2 Delivery Room Air Room Air Room Air Room Air 12/12/20 12/12/20 12/12/20 12/12/20 03:30 07:53 08:00 10:40 Temp 98.0 97.6 96.6 98.0 97.6 96.6 Pulse 76 70 77 Resp 20 20 20 B/P (MAP) 187/91 (123) 135/64 (87) 136/65 (88) Pulse Ox 100 96 95 O2 Delivery Nasal Cannula Nasal Cannula Room Air Room Air O2 Flow Rate 2.0 2.0 Intake and Output 12/11/20 12/11/20 12/12/20 15:00 23:00 07:00 Intake Total 0 ml 0 ml 0 ml Balance 0 ml 0 ml 0 ml Justicifation of Admission Dx: Justifications for Admission: Justification of Admission Dx: N/A KATHRYN HALL MD Dec 12, 2020 13:37
[2020-12-12 15:10] VITALS: BP 119/59
[2020-12-12 19:15] VITALS: BP 138/70
[2020-12-12 23:42] VITALS: BP 149/68
[2020-12-13 03:45] VITALS: BP 183/79
[2020-12-13] MEDS: AA 4.25 %/CALCIUM/LYTES/D5W 1,000 ML IV SCH ×2 (05:33→17:03)
[2020-12-13 07:00] VITALS: BP 139/65
[2020-12-13] MEDS: levETIRAcetam 500 MG in IV DEXTROSE 5% 100ML 100 ML IV SCH ×2 (09:00→20:17)
--- NOTE | 2020-12-13 09:14 | PDOC ---
Provider Note Date of Service: DATE: 12/13/20 TIME: 09:13 Provider Note status same, esr 20, no temp- plan bx 12/15 still Justifications for Admission Other Justification AUGUSTINE HARRISON MD Dec 13, 2020 09:14
[2020-12-13 10:53] VITALS: BP 117/61
[2020-12-13 14:15] VITALS: BP 133/60
[2020-12-13 19:45] VITALS: BP 167/79
[2020-12-13 23:00] VITALS: BP 142/67
[2020-12-14 03:30] VITALS: BP 173/72
[2020-12-14] MEDS: AA 4.25 %/CALCIUM/LYTES/D5W 1,000 ML IV SCH ×2 (06:14→19:40)
[2020-12-14 07:00] VITALS: BP 145/64
--- NOTE | 2020-12-14 07:47 | PDOC ---
Provider Note Date of Service: DATE: 12/14/20 TIME: 07:47 Provider Note status same , exam same, for brain bx today Justifications for Admission Other Justification AUGUSTINE HARRISON MD Dec 14, 2020 07:47
[2020-12-14] MEDS: levETIRAcetam 500 MG in IV DEXTROSE 5% 100ML 100 ML IV SCH ×2 (08:24→20:45)
--- NOTE | 2020-12-14 09:03 | PDOC ---
PROGRESS NOTES Date of Service DATE: 12/14/20 TIME: 09:01 Assessment Problems Medical Problems: (1) Abnormal CT of brain Status: Acute (2) Abrasion of head Status: Acute (3) Altered mental status Status: Acute (4) Microcytic anemia Status: Acute (5) Need for Tdap vaccination Status: Acute Bilateral temporal lobe edema and diffusion restriction. This was also observed at [facility]. Lumbar puncture here shows 1 white blood cell, 0 red blood cells, glucose 116, protein 139.2. I doubt any type of acute encephalitis, paraneoplastic encephalitis, ongoing seizure activity. I wonder about a low- grade neoplasm. 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 This type of course would be very unlikely in any type of encephalitis. Past medical history of atrial fibrillation for which he is on Eliquis, DVT, left arm, type 2 diabetes, dysphagia after the hospitalization 2 months ago, 2.5 cm x 2.5 cm right renal mass, acute ischemic event of the left arm, tonsillectomy, cataract surgery, two back surgeries. Plan Levetiracetam Discontinued acyclovir Family is willing to proceed with left anterior temporal brain biopsy, Dr. Mcdonnell can do on 12/15. Rehabilitation modalities. Switched IV fluid to peripheral nutrition Discussed with patient's Subjective is worried about the apixaban, this will be resumed when the patient is able to take orally and after surgery, if he is going to be n.p.o. for a prolonged amount of time, we can start him on enoxaparin Objective Vital Signs Date Time Temp Pulse Resp B/P (MAP) Pulse Ox O2 Delivery O2 Flow Rate FiO2 12/14/20 03:30 97.9 84 18 173/72 (105) 98 Room Air 97.9 12/13/20 19:41 2.0 Intake and Output 12/14/20 07:00 Output Total 75 ml Balance -75 ml Output Urine Total 75 ml # Voids 9 PHYSICAL EXAM Alert. Oriented only to person. Follows commands. Mittens off PERRL. EOMI. CN: no focal findings. Muscle tone: normal. Muscle strength: 4/5 DTR: 2+ Plantar reflex: Flexor Gait: not examined in bed. Sensory exam: no abnormal findings. Cerebellar: Not cooperative Review of Relevant I have reviewed the following items megan (where applicable) has been applied. Labs Laboratory Tests Test 12/12/20 10:51 Erythrocyte Sedimentation Rate 20 (0-15) Medications Current Medications Diphtheria/ Tetanus/Acell Pertussis (ADACEL TDap SYRINGE) 0.5 ml ONCE ONCE VAX IM Last administered on 12/05/20at 14:44; Start 12/05/20 at 12:00; Stop 12/05/20 at 12:03; Status DC Iohexol (Omnipaque 300 Mg/ml) 75 ml 1X ONCE IV Last administered on 12/05/20at 13:00; Start 12/05/20 at 12:30; Stop 12/05/20 at 12:31; Status DC Info (CONTRAST GIVEN -- Rx MONITORING) 1 each PRN DAILY PRN MC SEE COMMENTS; Start 12/05/20 at 12:30; Stop 12/07/20 at 12:29; Status DC Lorazepam (Ativan Inj) 0.5 mg 1X ONCE IVP Last administered on 12/05/20at 12:50; Start 12/05/20 at 13:00; Stop 12/05/20 at 13:01; Status DC Acyclovir Sodium 530 mg/Dextrose 110.6 ml @ 110.6 mls/ hr 1X ONCE IV Last administered on 12/05/20at 15:50; Start 12/05/20 at 15:00; Stop 12/05/20 at 15:59; Status DC Haloperidol Lactate (Haldol Inj) 5 mg 1X ONCE IVP Last administered on 12/05/20at 15:38; Start 12/05/20 at 15:45; Stop 12/05/20 at 15:46; Status DC Midazolam HCl (Versed) 2 mg STK-MED ONCE .ROUTE ; Start 12/05/20 at 15:51; Stop 12/05/20 at 15:52; Status DC Acyclovir Sodium 600 mg/Dextrose 262 ml @ 262 mls/hr Q12HR IV Last administered on 12/05/20at 23:42; Start 12/06/20 at 00:00; Stop 12/06/20 at 05:21; Status DC Acyclovir Sodium 600 mg/Dextrose 112 ml @ 112 mls/hr Q12HR IV Last adminis tered on 12/11/20at 09:00; Start 12/06/20 at 09:00; Stop 12/11/20 at 09:06; Status DC Haloperidol Lactate (Haldol Inj) 3 mg PRN Q6HRS PRN IVP AGITATION Last administered on 12/06/20at 21:01; Start 12/06/20 at 10:00 Lorazepam (Ativan Inj) 1 mg PRN Q4HRS PRN IVP ANXIETY / AGITATION-1ST Last administered on 12/11/20at 16:31; Start 12/06/20 at 10:00 Lorazepam (Ativan Inj) 1 mg 1X ONCE IVP Last administered on 12/06/20at 10:07; Start 12/06/20 at 10:00; Stop 12/06/20 at 10:01; Status DC Levetiracetam (Keppra) 500 mg BID PO ; Start 12/07/20 at 13:45; Stop 12/07/20 at 13:43; Status DC Levetiracetam 500 mg/Dextrose 105 ml @ 420 mls/hr Q12HR IV Last administered on 12/14/20at 08:24; Start 12/07/20 at 14:30 Sodium Chloride 1,000 ml @ 75 mls/hr [id number] IV Last administered on 12/10/20at 01:51; Start 12/09/20 at 10:45; Stop 12/10/20 at 13:37; Status DC Amino Acids/ Electrolytes/ Dextrose 1,000 ml @ 80 mls/hr [id number] IV Last administered on 12/14/20at 06:14; Start 12/10/20 at 13:45 Active Scripts Active Reported Fludrocortisone Acetate 0.1 Mg Tablet 0.1 Mg PO DAILY Eliquis (Apixaban) 5 Mg Tablet 5 Mg PO BIDWMEALS Metformin Hcl 1,000 Mg Tablet 1,000 Mg PO BIDWMEALS Ezetimibe 10 Mg Tablet 10 Mg PO HS Crestor (Rosuvastatin Calcium) 10 Mg Tablet 10 Mg PO HS Zetia (Ezetimibe) 10 Mg Tablet 10 Mg PO DAILY Vitals/I & O Vital Sign - Last 24 Hours 12/13/20 12/13/20 12/13/20 12/13/20 10:53 14:15 19:41 19:45 Temp 96.5 97.4 97.7 96.5 97.4 97.7 Pulse 84 68 85 Resp 21 19 18 B/P (MAP) 117/61 (79) 133/60 (84) 167/79 (108) Pulse Ox 92 95 98 O2 Delivery Room Air Room Air Nasal Cannula Room Air O2 Flow Rate 2.0 12/13/20 12/14/20 23:00 03:30 Temp 97.8 97.9 97.8 97.9 Pulse 70 84 Resp 18 18 B/P (MAP) 142/67 (92) 173/72 (105) Pulse Ox 96 98 O2 Delivery Room Air Room Air Intake and Output 12/13/20 12/13/20 12/14/20 15:00 23:00 07:00 Output Total 75 ml Balance -75 ml Justicifation of Admission Dx: Justifications for Admission: Justification of Admission Dx: N/A KATHRYN HALL MD Dec 14, 2020 09:03
--- NOTE | 2020-12-14 09:56 | NUR ---
Assumed pt care at this time. Pt in bed sleeping. at bedside. Denied any needs at this time. Call light within reach.
[2020-12-14 11:00] VITALS: BP_SYST 149; BP_SYST 166; BP_DIAS 59; BP_DIAS 67
--- NOTE | 2020-12-14 11:56 | NUR ---
SS following up with discharge planning. SS reviewed pt chart and discussed with pt RN. Pt is from home with spouse and is currently on room air. Pt on IV Keppra. NPO and on Clinimix. Pt having temporal brain biopsy tomorrow. PT/OT recommended fci unit. Pt's spouse requesting that pt return to home at discharge. Pt's spouse declining facility placement. Pt's spouse requesting hospital bed at home and reported that they do have funding for private duty care. SS will continue to follow for discharge planning.
--- NOTE | 2020-12-14 12:19 | PDOC ---
PROGRESS NOTES Date of Service DATE: 12/14/20 TIME: 12:17 Subjective Subjective sitting up in bed says he doesn't feel very well today Objective Objective Vital Signs Date Time Temp Pulse Resp B/P (MAP) Pulse Ox O2 Delivery O2 Flow Rate FiO2 12/14/20 11:00 97.2 66 18 149/67 (94) 96 Room Air 97.2 12/14/20 08:00 2.0 Intake and Output 12/14/20 07:00 Output Total 75 ml Balance -75 ml Output Urine Total 75 ml # Voids 9 Physical Exam General: Alert, Cooperative, No acute distress, Other (oriented to person, follows commnads) Neuro: Other (strength 4/5 , PLATT) Assessment Assessment Problems Medical Problems: (1) Abnormal CT of brain Status: Acute (2) Abrasion of head Status: Acute (3) Altered mental status Status: Acute (4) Microcytic anemia Status: Acute (5) Need for Tdap vaccination Status: Acute Plan Plan of Care plan for biopsy tomorrow D/W Dr. Schmidt, left message with to discuss Comment Review of Relevant I have reviewed the following items megan (where applicable) has been applied. Medications Current Medications Diphtheria/ Tetanus/Acell Pertussis (ADACEL TDap SYRINGE) 0.5 ml ONCE ONCE VAX IM Last administered on 12/05/20at 14:44; Start 12/05/20 at 12:00; Stop 12/05/20 at 12:03; Status DC Iohexol (Omnipaque 300 Mg/ml) 75 ml 1X ONCE IV Last administered on 12/05/20at 13:00; Start 12/05/20 at 12:30; Stop 12/05/20 at 12:31; Status DC Info (CONTRAST GIVEN -- Rx MONITORING) 1 each PRN DAILY PRN MC SEE COMMENTS; Start 12/05/20 at 12:30; Stop 12/07/20 at 12:29; Status DC Lorazepam (Ativan Inj) 0.5 mg 1X ONCE IVP Last administered on 12/05/20at 12:50; Start 12/05/20 at 13:00; Stop 12/05/20 at 13:01; Status DC Acyclovir Sodium 530 mg/Dextrose 110.6 ml @ 110.6 mls/ hr 1X ONCE IV Last administered on 12/05/20at 15:50; Start 12/05/20 at 15:00; Stop 12/05/20 at 15:59; Status DC Haloperidol Lactate (Haldol Inj) 5 mg 1X ONCE IVP Last administered on 12/05/20at 15:38; Start 12/05/20 at 15:45; Stop 12/05/20 at 15:46; Status DC Midazolam HCl (Versed) 2 mg STK-MED ONCE .ROUTE ; Start 12/05/20 at 15:51; Stop 12/05/20 at 15:52; Status DC Acyclovir Sodium 600 mg/Dextrose 262 ml @ 262 mls/hr Q12HR IV Last administered on 12/05/20at 23:42; Start 12/06/20 at 00:00; Stop 12/06/20 at 05:21; Status DC Acyclovir Sodium 600 mg/Dextrose 112 ml @ 112 mls/hr Q12HR IV Last administered on 12/11/20at 09:00; Start 12/06/20 at 09:00; Stop 12/11/20 at 09:06; Status DC Haloperidol Lactate (Haldol Inj) 3 mg PRN Q6HRS PRN IVP AGITATION Last administered on 12/06/20at 21:01; Start 12/06/20 at 10:00 Lorazepam (Ativan Inj) 1 mg PRN Q4HRS PRN IVP ANXIETY / AGITATION-1ST Last administered on 12/11/20at 16:31; Start 12/06/20 at 10:00 Lorazepam (Ativan Inj) 1 mg 1X ONCE IVP Last administered on 12/06/20at 10:07; Start 12/06/20 at 10:00; Stop 12/06/20 at 10:01; Status DC Levetiracetam (Keppra) 500 mg BID PO ; Start 12/07/20 at 13:45; Stop 12/07/20 at 13:43; Status DC Levetiracetam 500 mg/Dextrose 105 ml @ 420 mls/hr Q12HR IV Last administered on 12/14/20at 08:24; Start 12/07/20 at 14:30 Sodium Chloride 1,000 ml @ 75 mls/hr [id number] IV Last administered on 12/10/20at 01:51; Start 12/09/20 at 10:45; Stop 12/10/20 at 13:37; Status DC Amino Acids/ Electrolytes/ Dextrose 1,000 ml @ 80 mls/hr [id number] IV Last administered on 12/14/20at 06:14; Start 12/10/20 at 13:45 Active Scripts Active Reported Fludrocortisone Acetate 0.1 Mg Tablet 0.1 Mg PO DAILY Eliquis (Apixaban) 5 Mg Tablet 5 Mg PO BIDWMEALS Metformin Hcl 1,000 Mg Tablet 1,000 Mg PO BIDWMEALS Ezetimibe 10 Mg Tablet 10 Mg PO HS Crestor (Rosuvastatin Calcium) 10 Mg Tablet 10 Mg PO HS Zetia (Ezetimibe) 10 Mg Tablet 10 Mg PO DAILY Vitals/I & O Vital Sign - Last 24 Hours 12/13/20 12/13/20 12/13/20 12/13/20 14:15 19:41 19:45 23:00 Temp 97.4 97.7 97.8 97.4 97.7 97.8 Pulse 68 85 70 Resp 19 18 18 B/P (MAP) 133/60 (84) 167/79 (108) 142/67 (92) Pulse Ox 95 98 96 O2 Delivery Room Air Nasal Cannula Room Air Room Air O2 Flow Rate 2.0 12/14/20 12/14/20 12/14/20 12/14/20 03:30 07:00 08:00 11:00 Temp 97.9 96.6 97.2 97.9 96.6 97.2 Pulse 84 62 66 Resp 18 18 18 B/P (MAP) 173/72 (105) 145/64 (91) 149/67 (94) Pulse Ox 98 98 96 O2 Delivery Room Air Room Air Nasal Cannula Room Air O2 Flow Rate 2.0 Intake and Output 12/13/20 12/13/20 12/14/20 15:00 23:00 07:00 Output Total 75 ml Balance -75 ml Justifications for Admission Other Justification Nutrition Consultation Dietary Evaluation: Recommendations by RD: Dietary education by RD, PPN/TPN Comments: continue PPN at this time Expected Outcomes/Goals: to be determined Malnutrition Findings: Muscle Mass (Severe): Severe Depletion Body Fat Depletion (Non Severe: Mod to Severe Weight Status: Underweight LUISANA OCHOA MD Dec 14, 2020 12:19
[2020-12-14 15:00] VITALS: BP 154/70
[2020-12-14 19:35] VITALS: BP 181/81
[2020-12-14 22:40] VITALS: BP 132/64
[2020-12-15 02:50] VITALS: BP 132/77
[2020-12-15] MEDS ORDERED: HYDROmorphone 2 MG/ML VIAL IVP PRN (06:00)
[2020-12-15] MEDS ORDERED: ceFAZolin SODIUM 1 GM in IV NORMAL SALINE 1000ML BAG 1,000 ML IRR ONE (06:00)
[2020-12-15] MEDS ORDERED: MORPHINE SULFATE 2 MG/ML INJ. IVP PRN (06:00)
[2020-12-15] MEDS ORDERED: PROCHLORPERAZINE 10 MG/2 ML VIAL. IVP PRN (06:00)
[2020-12-15] MEDS ORDERED: IV RINGERS,LACTATED 1000ML 1,000 ML IV SCH (06:00)
[2020-12-15] MEDS ORDERED: fentaNYL PF VIAL 100 MCG/2 ML VIAL IVP PRN ×2 (06:00)
--- NOTE | 2020-12-15 06:30 | NUR ---
Rapid Covid swab collected and hand delivered to lab. Patient was bathed and linens changed.
[2020-12-15 07:00] VITALS: BP 136/72
[2020-12-15] MEDS: AA 4.25 %/CALCIUM/LYTES/D5W 1,000 ML IV SCH ×2 (08:13→18:37)
--- NOTE | 2020-12-15 08:17 | PN ---
DATE: 12/15/2020 LOCATION: He is in room 660. SUBJECTIVE: This 84-year-old male remains hospitalized with encephalopathy of currently uncertain etiology. He remains more talkative and definitely is a little more oriented this morning. His and his daughter's [id number] are present and he is visiting with them. He still was somewhat confused however. OBJECTIVE: VITAL SIGNS: Stable. He is afebrile. GENERAL: He is awake and alert, confused. CHEST: Clear. HEART: Regular. ABDOMEN: Benign. IMPRESSION: 1. Encephalopathy of uncertain etiology. Ongoing workup. 2. Diabetes. PLAN: Continue present care. Plan for brain biopsy today. We will place him on ProcalAmine for some calories as this is going to become a problem nutritionally in the very near future, which he was already quite cachectic, starting this today. JASVIR DR: Ana TID: [id number]
[2020-12-15] MEDS ORDERED: ACETAMINOPHEN 650 MG SUPP.RECT. PR PRN (08:30)
--- NOTE | 2020-12-15 08:51 | PDOC ---
PROGRESS NOTES Date of Service DATE: 12/15/20 TIME: 08:49 Assessment Problems Medical Problems: (1) Abnormal CT of brain Status: Acute (2) Abrasion of head Status: Acute (3) Altered mental status Status: Acute (4) Microcytic anemia Status: Acute (5) Need for Tdap vaccination Status: Acute Complains of headache Bilateral temporal lobe edema and diffusion restriction. This was also observed at [facility]. Lumbar puncture here shows 1 white blood cell, 0 red blood cells, glucose 116, protein 139.2. I doubt any type of acute encephalitis, paraneoplastic encephalitis, ongoing seizure activity. I wonder about a low- grade neoplasm. EEG showed periodic lateralizing epileptiform discharges arising from the left anterior temporal lobe, 12/07, improved on 12/09 EEG study West Nile CSF IgG positive, IgM negative, doubt acute West Nile encephalitis HSV CSF PCR negative Possible concussion Prior dementia Failed his swallow study He was hospitalized at 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 This type of course would be very unlikely in any type of encephalitis. Past medical history of atrial fibrillation for which he is on Eliquis, DVT, left arm, type 2 diabetes, dysphagia after the hospitalization 2 months ago, 2.5 cm x 2.5 cm right renal mass, acute ischemic event of the left arm, tonsil lectomy, cataract surgery, two back surgeries Plan Levetiracetam Discontinued acyclovir Left anterior temporal brain biopsy today Rehabilitation modalities. Switched IV fluid to peripheral nutrition Agree with acetaminophen OR as needed for headache Discussed with patient's and son Subjective Has intermittent headache Objective Vital Signs Date Time Temp Pulse Resp B/P (MAP) Pulse Ox O2 Delivery O2 Flow Rate FiO2 12/15/20 08:13 16 Room Air 12/15/20 07:00 96.9 72 136/72 (93) 95 96.9 12/14/20 08:00 2.0 Intake and Output 12/15/20 07:00 Intake Total 0 ml Output Total 60 ml Balance -60 ml Intake Oral 0 ml Output Urine Total 60 ml # Voids 4 PHYSICAL EXAM Alert. Oriented only to person. Follows commands. Mittens off PERRL. EOMI. CN: no focal findings. Muscle tone: normal. Muscle strength: 4/5 DTR: 2+ Plantar reflex: Flexor Gait: not examined in bed. Sensory exam: no abnormal findings. Cerebellar: Not cooperative Review of Relevant I have reviewed the following items megan (where applicable) has been applied. Labs Laboratory Tests Test 12/15/20 06:15 SARS-CoV-2 Antigen (Rapid) Negative (NEGATIVE) Laboratory Tests Test 12/15/20 06:15 SARS-CoV-2 Antigen (Rapid) Negative (NEGATIVE) Medications Current Medications Diphtheria/ Tetanus/Acell Pertussis (ADACEL TDap SYRINGE) 0.5 ml ONCE ONCE VAX IM Last administered on 12/05/20at 14:44; Start 12/05/20 at 12:00; Stop 12/05/20 at 12:03; Status DC Iohexol (Omnipaque 300 Mg/ml) 75 ml 1X ONCE IV Last administered on 12/05/20at 13:00; Start 12/05/20 at 12:30; Stop 12/05/20 at 12:31; Status DC Info (CONTRAST GIVEN -- Rx MONITORING) 1 each PRN DAILY PRN MC SEE COMMENTS; Start 12/05/20 at 12:30; Stop 12/07/20 at 12:29; Status DC Lorazepam (Ativan Inj) 0.5 mg 1X ONCE IVP Last administered on 12/05/20at 12:50; Start 12/05/20 at 13:00; Stop 12/05/20 at 13:01; Status DC Acyclovir Sodium 530 mg/Dextrose 110.6 ml @ 110.6 mls/ hr 1X ONCE IV Last administered on 12/05/20at 15:50; Start 12/05/20 at 15:00; Stop 12/05/20 at 15:59; Status DC Haloperidol Lactate (Haldol Inj) 5 mg 1X ONCE IVP Last administered on 12/05/20at 15:38; Start 12/05/20 at 15:45; Stop 12/05/20 at 15:46; Status DC Midazolam HCl (Versed) 2 mg STK-MED ONCE .ROUTE ; Start 12/05/20 at 15:51; Stop 12/05/20 at 15:52; Status DC Acyclovir Sodium 600 mg/Dextrose 262 ml @ 262 mls/hr Q12HR IV Last administered on 12/05/20at 23:42; Start 12/06/20 at 00:00; Stop 12/06/20 at 05:21; Status DC Acyclovir Sodium 600 mg/Dextrose 112 ml @ 112 mls/hr Q12HR IV Last adminis tered on 12/11/20at 09:00; Start 12/06/20 at 09:00; Stop 12/11/20 at 09:06; Status DC Haloperidol Lactate (Haldol Inj) 3 mg PRN Q6HRS PRN IVP AGITATION Last administered on 12/06/20at 21:01; Start 12/06/20 at 10:00 Lorazepam (Ativan Inj) 1 mg PRN Q4HRS PRN IVP ANXIETY / AGITATION-1ST Last administered on 12/11/20at 16:31; Start 12/06/20 at 10:00 Lorazepam (Ativan Inj) 1 mg 1X ONCE IVP Last administered on 12/06/20at 10:07; Start 12/06/20 at 10:00; Stop 12/06/20 at 10:01; Status DC Levetiracetam (Keppra) 500 mg BID PO ; Start 12/07/20 at 13:45; Stop 12/07/20 at 13:43; Status DC Levetiracetam 500 mg/Dextrose 105 ml @ 420 mls/hr Q12HR IV Last administered on 12/14/20at 20:45; Start 12/07/20 at 14:30 Sodium Chloride 1,000 ml @ 75 mls/hr [id number] IV Last administered on 12/10/20at 01:51; Start 12/09/20 at 10:45; Stop 12/10/20 at 13:37; Status DC Amino Acids/ Electrolytes/ Dextrose 1,000 ml @ 80 mls/hr [id number] IV Last administered on 12/15/20at 08:13; Start 12/10/20 at 13:45 Cefazolin Sodium/ Dextrose 50 ml @ 100 mls/hr 1X PREOP PRN IV PRIOR TO PROCEDURE; Start 12/15/20 at 06:00; Stop 12/15/20 at 18:00 Fentanyl Citrate (Fentanyl 2ml Vial) 25 mcg PRN Q5MIN PRN IVP MILD PAIN 1-3; Start 12/15/20 at 06:00; Stop 12/15/20 at 20:00 Fentanyl Citrate (Fentanyl 2ml Vial) 50 mcg PRN Q5MIN PRN IVP MODERATE PAIN 4- 6; Start 12/15/20 at 06:00; Stop 12/15/20 at 20:00 Morphine Sulfate (Morphine Sulfate) 1 mg PRN Q10MIN PRN IVP SEVERE PAIN 7-10 Last administered on 12/15/20at 08:13; Start 12/15/20 at 06:00; Stop 12/15/20 at 20:00 Ringer's Solution 1,000 ml @ 30 mls/hr Q24H IV ; Start 12/15/20 at 06:00; Stop 12/15/20 at 17:59 Hydromorphone HCl (Dilaudid) 0.5 mg PRN Q10MIN PRN IVP SEVERE PAIN 7-10, 2nd CHOICE; Start 12/15/20 at 06:00; Stop 12/15/20 at 20:00 Prochlorperazine Edisylate (Compazine) 5 mg PACU PRN PRN IVP NAUSEA, MRX1; Start 12/15/20 at 06:00; Stop 12/15/20 at 20:00 Cefazolin Sodium 1 gm/Sodium Chloride 1,000 ml @ 1,000 mls/hr 1X ONCE IRR ; Start 12/15/20 at 06:00; Stop 12/15/20 at 07:00; Status DC Acetaminophen (Tylenol Supp) 650 mg PRN Q6HRS PRN OR MILD PAIN / TEMP > 100.3'F; Start 12/15/20 at 08:30 Active Scripts Active Reported Fludrocortisone Acetate 0.1 Mg Tablet 0.1 Mg PO DAILY Eliquis (Apixaban) 5 Mg Tablet 5 Mg PO BIDWMEALS Metformin Hcl 1,000 Mg Tablet 1,000 Mg PO BIDWMEALS Ezetimibe 10 Mg Tablet 10 Mg PO HS Crestor (Rosuvastatin Calcium) 10 Mg Tablet 10 Mg PO HS Zetia (Ezetimibe) 10 Mg Tablet 10 Mg PO DAILY Vitals/I & O Vital Sign - Last 24 Hours 12/14/20 12/14/20 12/14/20 12/14/20 11:00 15:00 19:35 20:00 Temp 97.2 97.0 97.6 97.2 97.0 97.6 Pulse 66 70 67 Resp 18 18 18 B/P (MAP) 149/67 (94) 154/70 (98) 181/81 (114) Pulse Ox 96 96 98 O2 Delivery Room Air Room Air Room Air Room Air 12/14/20 12/15/20 12/15/20 12/15/20 22:40 02:50 07:00 08:13 Temp 97.8 97.7 96.9 97.8 97.7 96.9 Pulse 69 67 72 Resp 18 18 16 16 B/P (MAP) 132/64 (86) 132/77 (95) 136/72 (93) Pulse Ox 97 95 95 O2 Delivery Room Air Room Air Room Air Room Air Intake and Output 12/14/20 12/14/20 12/15/20 15:00 23:00 07:00 Intake Total 0 ml Output Total 60 ml Balance -60 ml Justicifation of Admission Dx: Justifications for Admission: Justification of Admission Dx: N/A KATHRYN HALL MD Dec 15, 2020 08:50
[2020-12-15] MEDS: levETIRAcetam 500 MG in IV DEXTROSE 5% 100ML 100 ML IV SCH ×2 (09:00→20:53)
[2020-12-15] MEDS ORDERED: ceFAZolin 2GM PREMIX 2 GM/50 ML BAG IV ONE (09:00)
[2020-12-15] MEDS ORDERED: LIDOCAINE 2% PF 5 ML VIAL. ONE (09:06)
[2020-12-15] MEDS ORDERED: PROPOFOL 50 ML IV ONE (09:06)
[2020-12-15] MEDS ORDERED: DEXAMETHASONE SOD PHOS 4 MG/ML VIAL ONE (09:06)
[2020-12-15] MEDS ORDERED: ONDANSETRON PF 4 MG/2 ML VIAL. ONE (09:06)
[2020-12-15] MEDS ORDERED: PROPOFOL 10 MG/ML (20ML) VIAL. IV ONE (09:06)
[2020-12-15] MEDS ORDERED: ROCURONIUM 50 MG/5 ML VIAL. ONE (09:07)
[2020-12-15 11:00] VITALS: BP 179/81
--- NOTE | 2020-12-15 11:13 | NUR ---
NURSING PT DECIDED AGAINST BRAIN BIOPSY AT THIS TIME. PRE-OP ANCEF NOT GIVEN, MARKED NON-ADMIN.
--- NOTE | 2020-12-15 11:37 | NUR ---
SS following up with discharge planning. SS reviewed pt chart and discussed with pt RN. Pt is from home with spouse and is currently on room air. COVID19 negative. Pt NPO and on Clinimix. Pt on IV Keppra. Pt's spouse met with Dr. Mcdonnell today and declined brain biopsy. SS met with pt's spouse and discussed. Pt's spouse reported that the risks were too great and she did not want pt to be put through too much pain. Pt's spouse requesting assessment for PEG tube at this time. SS notified Dr. Evans. GI consult ordered. Pt's spouse wanting to discuss home healthcare vs. hospice with Dr. Evans. Pt's spouse reported that she will not put pt in facility and has a room cleared for him and would need a hospital bed. SS contacted Dr. Evans and requested that he speak with pt's spouse and discuss home healthcare vs. hospice. Dr. Evans notified that pt's spouse wants hospital bed for the home. SS will continue to follow for discharge planning.
--- NOTE | 2020-12-15 13:37 | PDOC2 ---
GI CONSULT Date of Service: DATE: 12/15/20 TIME: 13:25 Reason For Consult: possible PEG placement HPI: HPI: 84 y/o male admitted through ER on 12/05/20 w/ AMS. Extensive workup here inconclusive, had planned for left temporal biopsy today but decided to not pursue this. PROTECTIVE SERVICE SPECIALIST encounters as below. We have been asked to see for possible PEG placement. tells me she wants to see what the swallow eval shows first. H/o dysphagia and PEG placement in 2019 for ~8 months (at [facility]). Has lost steadily lost weight over the past several years. No significant GI history or abdominal surgeries other than PEG. PMH: PMH: A Fib, DVT, HLD, DM, renal mass, seizures, dementia tonsillectomy, cataract removal, back surgeries, PEG placement/removal FH: Family History: No pertinent hx Social History: Smoke: Quit Drugs: None ROS: See HPI. Vitals: Vitals: Vital Signs Date Time Temp Pulse Resp B/P (MAP) Pulse Ox O2 Delivery O2 Flow Rate FiO2 12/15/20 11:00 96.6 68 16 179/81 (113) 95 Room Air 96.6 12/15/20 08:00 2.0 Labs: Labs: Laboratory Tests Test 12/15/20 06:15 SARS-CoV-2 Antigen (Rapid) Negative (NEGATIVE) Allergies: Coded Allergies: amoxicillin (Verified Allergy, Intermediate, 07/25/13) Medications: Current Medications Medications (Trade) Dose Ordered Sig/Chucho Route PRN Reason Start Time Stop Time Status Last Admin Dose Admin Morphine Sulfate (Morphine Sulfate) 1 mg PRN Q10MIN PRN IVP SEVERE PAIN 7-10 12/15/20 06:00 12/15/20 20:00 12/15/20 08:13 Imaging: Imaging: CXR FINDINGS/ IMPRESSION: Blunting of the right costophrenic angle may represent pleural thickening/scarring versus a small right pleural effusion. Bibasilar atelectasis and/or scarring is noted. No pneumothorax. The cardiac silhouette and pulmonary vasculature are within normal limits. Head CT IMPRESSION: 1. Focal zone of low density in the right temporal lobe is indeterminate and could represent subacute to remote infarct. Underlying mass with vasogenic edema cannot be excluded. Correlate clinically. If indicated, MRI brain with and without contrast and better evaluate. 2. Mild to moderate chronic small vessel ischemic changes and atrophy. 3. No apparent acute hemorrhage Brain MRI IMPRESSION: 1. 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 Correlate for herpes encephalitis or other causes. 2. A 1 cm masslike focus within the left mesial temporal lobe is likely a small region of petechial hemorrhagic transformation rather than a mass, but this is not definitive without contrast. Correlate to exclude a source of metastatic disease. 3. Pachymeningeal thickening on the right is nonspecific and may reflect meningeal inflammation or reactive change in the setting of the aforementioned p rocess. Head/Neck CTA IMPRESSION: 1. Hypoattenuation of the right anterior temporal lobe may represent a subacute infarct. An underlying mass or inflammatory processes such as encephalitis are not excluded. MRI with and without contrast and correlation to exclude infection recommended. 2. <50% stenosis at the origin of the right cervical internal carotid artery. 3. 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 No intracranial stenosis or aneurysm. 4. Small posterior circulation. Persistent supply to both posterior cerebral arteries. 5. Small to moderate right pleural effusion. EEG IMPRESSION: This electroencephalogram with the patient awake and asleep is abnormal because of epileptic disturbance arising from the left temporal region. EEG IMPRESSION: This electroencephalogram with the patient awake and asleep is abnormal because of left anterior temporal epileptic activity, markedly improved from the previous study of 2 days ago. There is also a diffuse disturbance of cerebral activity consistent with any of a variety of toxic or metabolic encephalopathies. PROTECTIVE SERVICE SPECIALIST 12/15/20: Med Hold- brain biopsy planned for today. Given biopsy and pt's 's refusal of PROTECTIVE SERVICE SPECIALIST tx attempt at last visit, by stating "swallowing is not important right now," will hold any add'l f/u pending completion of brain biopsy and determination of pt/fmly goals of care. D/W ALYSE Perez. At last visit on 12/10/20: Current findings unchanged from 12/09. Pt w/ overt s/s aspiration on 100% of tri als of single ice chip x2 and tsp honey thick x3. Chintuck posture was not achieved by pt w/max cues from PROTECTIVE SERVICE SPECIALIST and . Hyolaryngeal mvmt was incomplete and limited in upward &anterior excursion to palpation. reported significant weight loss over past years, but more so recently. also reported at pt's last swallow eval 10/2020, they were told he needs to use a chintuck swallow; however, she says pt will not listen to her when she reminds him to use that technique. She states it is common for him to cough while eating/drinking. stated 12/10 that pt had xray of swallow, presumably videoswallow, 2 years ago and was told to tuck his chin then. She previously indicated that she was unsure if he had ever had a swallow x-ray. Pt was awake & cooperatiave throughout appeared fatigued. Phonation was moderately breathy, cough c/w same. IMPRESSIONS: Moderate to moderate-severe pharyngeal dysphagia w/ overt s/s aspiration w/on small amts of po including ice chips & joey honey thick liquids. Suspect impaired airway closure r/t reduced hyolaryngeal mvmt to adequately clear bolus through pharynx &/or adequately protect airway. Etiology may include current neuro condition, &/or generalized weakness. Videoswallow not indicated given OVERT s/s and pt hx of inability to follow postural strategies. No safe PO consistency identified at this time. RECOMMENDATIONS: Continue NPO w/ aggressive oral care. Will continue PROTECTIVE SERVICE SPECIALIST f/u to determine safety of PO intake. PE: GEN: appears chronically ill/cachectic HEENT: Atraumatic, PERRL LUNGS: gurgling cough HEART: RRR ABD: NABS, S/ND/NT EXTREMITY: No edema SKIN: No rashes, no jaundice NEURO/PSYCH: awake and alert, says anjana A/P: A/P: Encephalopathy, abnormal brain imaging Dysphagia (on PPN), h/o weight loss H/o PEG placement/removal Microcytic anemia (per labs on 12/05) COVID negative -- D/w nurse, social work, and pt's family. Goals of care undecided. They are familiar w/ PEG procedure. Will return later w/ Dr. Moralez. VLADIMIR HIGUERA Dec 15, 2020 13:37
--- NOTE | 2020-12-15 14:49 | PDOC ---
PROGRESS NOTES Date of Service DATE: 12/15/20 TIME: 14:46 Subjective Subjective Patient seen and examined at 0930 at bedside resting in bed Objective Objective Vital Signs Date Time Temp Pulse Resp B/P (MAP) Pulse Ox O2 Delivery O2 Flow Rate FiO2 12/15/20 11:00 96.6 68 16 179/81 (113) 95 Room Air 96.6 12/15/20 08:00 2.0 Intake and Output 12/15/20 06:59 Intake Total 0 ml Output Total 60 ml Balance -60 ml Intake Oral 0 ml Output Urine Total 60 ml # Voids 4 Physical Exam General: Other (somulent) Neuro: Other (would awaken to voice, unintelligble sounds, PLATT) Assessment Assessment Problems Medical Problems: (1) Abnormal CT of brain Status: Acute (2) Abrasion of head Status: Acute (3) Altered mental status Status: Acute (4) Microcytic anemia Status: Acute (5) Need for Tdap vaccination Status: Acute Plan Plan of Care Spoke with in detail regarding biopsy. She was very undecided. I outlined the surgery and risks. She wished to speak with her sons further before making a decision about brain biopsy. Comment Review of Relevant I have reviewed the following items megan (where applicable) has been applied. Labs Laboratory Tests Test 12/15/20 06:15 SARS-CoV-2 Antigen (Rapid) Negative (NEGATIVE) Laboratory Tests Test 12/15/20 06:15 SARS-CoV-2 Antigen (Rapid) Negative (NEGATIVE) Medications Current Medications Diphtheria/ Tetanus/Acell Pertussis (ADACEL TDap SYRINGE) 0.5 ml ONCE ONCE VAX IM Last administered on 12/05/20at 14:44; Start 12/05/20 at 12:00; Stop 12/05/20 at 12:03; Status DC Iohexol (Omnipaque 300 Mg/ml) 75 ml 1X ONCE IV Last administered on 12/05/20at 13:00; Start 12/05/20 at 12:30; Stop 12/05/20 at 12:31; Status DC Info (CONTRAST GIVEN -- Rx MONITORING) 1 each PRN DAILY PRN MC SEE COMMENTS; Start 12/05/20 at 12:30; Stop 12/07/20 at 12:29; Status DC Lorazepam (Ativan Inj) 0.5 mg 1X ONCE IVP Last administered on 12/05/20at 12:50; Start 12/05/20 at 13:00; Stop 12/05/20 at 13:01; Status DC Acyclovir Sodium 530 mg/Dextrose 110.6 ml @ 110.6 mls/ hr 1X ONCE IV Last administered on 12/05/20at 15:50; Start 12/05/20 at 15:00; Stop 12/05/20 at 15:59; Status DC Haloperidol Lactate (Haldol Inj) 5 mg 1X ONCE IVP Last administered on 12/05/20at 15:38; Start 12/05/20 at 15:45; Stop 12/05/20 at 15:46; Status DC Midazolam HCl (Versed) 2 mg STK-MED ONCE .ROUTE ; Start 12/05/20 at 15:51; Stop 12/05/20 at 15:52; Status DC Acyclovir Sodium 600 mg/Dextrose 262 ml @ 262 mls/hr Q12HR IV Last administered on 12/05/20at 23:42; Start 12/06/20 at 00:00; Stop 12/06/20 at 05:21; Status DC Acyclovir Sodium 600 mg/Dextrose 112 ml @ 112 mls/hr Q12HR IV Last administered on 12/11/20at 09:00; Start 12/06/20 at 09:00; Stop 12/11/20 at 09:06; Status DC Haloperidol Lactate (Haldol Inj) 3 mg PRN Q6HRS PRN IVP AGITATION Last administered on 12/06/20at 21:01; Start 12/06/20 at 10:00 Lorazepam (Ativan Inj) 1 mg PRN Q4HRS PRN IVP ANXIETY / AGITATION-1ST Last administered on 12/11/20at 16:31; Start 12/06/20 at 10:00 Lorazepam (Ativan Inj) 1 mg 1X ONCE IVP Last administered on 12/06/20at 10:07; Start 12/06/20 at 10:00; Stop 12/06/20 at 10:01; Status DC Levetiracetam (Keppra) 500 mg BID PO ; Start 12/07/20 at 13:45; Stop 12/07/20 at 13:43; Status DC Levetiracetam 500 mg/Dextrose 105 ml @ 420 mls/hr Q12HR IV Last administered on 12/15/20at 09:00; Start 12/07/20 at 14:30 Sodium Chloride 1,000 ml @ 75 mls/hr [id number] IV Last administered on 12/10/20at 01:51; Start 12/09/20 at 10:45; Stop 12/10/20 at 13:37; Status DC Amino Acids/ Electrolytes/ Dextrose 1,000 ml @ 80 mls/hr [id number] IV Last administered on 12/15/20at 08:13; Start 12/10/20 at 13:45 Cefazolin Sodium/ Dextrose 50 ml @ 100 mls/hr 1X PREOP PRN IV PRIOR TO PROCEDURE; Start 12/15/20 at 06:00; Stop 12/15/20 at 13:38; Status DC Fentanyl Citrate (Fentanyl 2ml Vial) 25 mcg PRN Q5MIN PRN IVP MILD PAIN 1-3; Start 12/15/20 at 06:00; Stop 12/15/20 at 20:00 Fentanyl Citrate (Fentanyl 2ml Vial) 50 mcg PRN Q5MIN PRN IVP MODERATE PAIN 4- 6; Start 12/15/20 at 06:00; Stop 12/15/20 at 20:00 Morphine Sulfate (Morphine Sulfate) 1 mg PRN Q10MIN PRN IVP SEVERE PAIN 7-10 Last administered on 12/15/20at 08:13; Start 12/15/20 at 06:00; Stop 12/15/20 at 20:00 Ringer's Solution 1,000 ml @ 30 mls/hr Q24H IV ; Start 12/15/20 at 06:00; Stop 12/15/20 at 13:40; Status DC Hydromorphone HCl (Dilaudid) 0.5 mg PRN Q10MIN PRN IVP SEVERE PAIN 7-10, 2nd CHOICE; Start 12/15/20 at 06:00; Stop 12/15/20 at 20:00 Prochlorperazine Edisylate (Compazine) 5 mg PACU PRN PRN IVP NAUSEA, MRX1; Start 12/15/20 at 06:00; Stop 12/15/20 at 20:00 Cefazolin Sodium 1 gm/Sodium Chloride 1,000 ml @ 1,000 mls/hr 1X ONCE IRR ; Start 12/15/20 at 06:00; Stop 12/15/20 at 07:00; Status DC Acetaminophen (Tylenol Supp) 650 mg PRN Q6HRS PRN ID MILD PAIN / TEMP > 100.3'F; Start 12/15/20 at 08:30 Propofol (Diprivan) 200 mg STK-MED ONCE IV ; Start 12/15/20 at 09:06; Stop 12/15/20 at 11:06; Status DC Lidocaine HCl (Lidocaine Pf 2% Vial) 5 ml STK-MED ONCE .ROUTE ; Start 12/15/20 at 09:06; Stop 12/15/20 at 11:06; Status DC Dexamethasone Sodium Phosphate (Decadron) 4 mg STK-MED ONCE .ROUTE ; Start 12/15/20 at 09:06; Stop 12/15/20 at 11:06; Status DC Ondansetron HCl (Zofran) 4 mg STK-MED ONCE .ROUTE ; Start 12/15/20 at 09:06; Stop 12/15/20 at 11:06; Status DC Propofol 50 ml @ As Directed STK-MED ONCE IV ; Start 12/15/20 at 09:06; Stop 12/15/20 at 11:07; Status DC Rocuronium [place] (Zemuron) 50 mg STK-MED ONCE .ROUTE ; Start 12/15/20 at 09:07; Stop 12/15/20 at 11:08; Status DC Active Scripts Active Reported Fludrocortisone Acetate 0.1 Mg Tablet 0.1 Mg PO DAILY Eliquis (Apixaban) 5 Mg Tablet 5 Mg PO BIDWMEALS Metformin Hcl 1,000 Mg Tablet 1,000 Mg PO BIDWMEALS Ezetimibe 10 Mg Tablet 10 Mg PO HS Crestor (Rosuvastatin Calcium) 10 Mg Tablet 10 Mg PO HS Zetia (Ezetimibe) 10 Mg Tablet 10 Mg PO DAILY Vitals/I & O Vital Sign - Last 24 Hours 12/14/20 12/14/20 12/14/20 12/14/20 15:00 19:35 20:00 22:40 Temp 97.0 97.6 97.8 97.0 97.6 97.8 Pulse 70 67 69 Resp 18 18 18 B/P (MAP) 154/70 (98) 181/81 (114) 132/64 (86) Pulse Ox 96 98 97 O2 Delivery Room Air Room Air Room Air Room Air 12/15/20 12/15/20 12/15/20 12/15/20 02:50 07:00 08:00 08:13 Temp 97.7 96.9 97.7 96.9 Pulse 67 72 Resp 18 16 16 B/P (MAP) 132/77 (95) 136/72 (93) Pulse Ox 95 95 O2 Delivery Room Air Room Air Room Air Room Air O2 Flow Rate 2.0 12/15/20 12/15/20 08:43 11:00 Temp 96.6 96.6 Pulse 68 Resp 16 16 B/P (MAP) 179/81 (113) Pulse Ox 95 O2 Delivery Room Air Room Air Intake and Output 12/14/20 12/14/20 12/15/20 14:59 22:59 06:59 Intake Total 0 ml Output Total 60 ml Balance -60 ml Justifications for Admission Other Justification Nutrition Consultation Dietary Evaluation: Recommendations by RD: Dietary education by RD, PPN/TPN Comments: continue PPN up to day 10 Expected Outcomes/Goals: comfort care Malnutrition Findings: Muscle Mass (Severe): Severe Depletion Body Fat Depletion (Non Severe: Mod to Severe Weight Status: Underweight LUISANA OCHOA MD Dec 15, 2020 14:48
[2020-12-15 15:00] VITALS: BP 154/83
[2020-12-15 19:15] VITALS: BP 148/65
[2020-12-15 23:15] VITALS: BP 187/89
--- NOTE | 2020-12-16 00:04 | NUR ---
pt very verbal tonight. says he cant sleep. wants his legs covered up. admin iv ativan. and made pt comfortable.lcrn
[2020-12-16 03:15] VITALS: BP 161/81
[2020-12-16] MEDS: AA 4.25 %/CALCIUM/LYTES/D5W 1,000 ML IV SCH ×2 (06:10→19:51)
[2020-12-16 07:00] VITALS: BP 177/80
[2020-12-16] MEDS: levETIRAcetam 500 MG in IV DEXTROSE 5% 100ML 100 ML IV SCH ×2 (09:17→22:07)
--- NOTE | 2020-12-16 09:42 | PDOC ---
Date of Service: DATE: 12/16/20 TIME: 09:36 Subjective: Subjective: present - says they will not pursue PEG "unless Dr. Evans says so." Says he did not like the PEG when he had it before and although he has been confused, when she asks him about it now, he says "no." She also says "I think we'll take him home on Hospice" and talks about how her children are going to the house to clear some space in his den for a bed. She is hoping he can eat like he did before. He has had a good life - they have children and grandchildren and great-grandchildren and he has so many friends. She says he's such a good rohit. She says a doctor asked him where he was going and he said [place]." Her [id number] arrives toward the end of our conversation - they talk about how he's always had a cough. She is a retired speech pathologist. When I left the room, his said "so we'll see how it goes." Objective: Vital Signs: Vital Signs Date Time Temp Pulse Resp B/P (MAP) Pulse Ox O2 Delivery O2 Flow Rate FiO2 12/16/20 07:00 97.6 70 18 177/80 (112) 96 Room Air 97.6 12/15/20 08:00 2.0 PE: GEN: appears chronically ill NEURO/PSYCH: sleeping, did not awaken A/P: Dysphagia, h/o PEG placement/removal -- Seems family leaning toward Hospice and away from PEG. Justicifation of Admission Dx: Justifications for Admission: Justification of Admission Dx: N/A VLADIMIR HIGUERA Dec 16, 2020 09:42
[2020-12-16 11:00] VITALS: BP 139/66
--- NOTE | 2020-12-16 12:08 | PDOC ---
PROGRESS NOTES Date of Service DATE: 12/16/20 TIME: 12:06 Assessment Problems Medical Problems: (1) Abnormal CT of brain Status: Acute (2) Abrasion of head Status: Acute (3) Altered mental status Status: Acute (4) Microcytic anemia Status: Acute (5) Need for Tdap vaccination Status: Acute has decided to forego the brain biopsy and wants to take him home with hospice. We discussed the need for a way to give him the seizure medicine, but she does not want him to have a PEG tube. He did have this before. I suppose they could maintain an IV to give the levetiracetam. Or we could simply stop it and see how he does without it. Bilateral temporal lobe edema and diffusion restriction. This was also observed at [facility]. Lumbar puncture here shows 1 white blood cell, 0 red blood cells, glucose 116, protein 139.2. I doubt any type of acute encephalitis, paraneoplastic encephalitis, ongoing seizure activity. I wonder about a low- grade neoplasm, for instance lymphoma. EEG showed periodic lateralizing epileptiform discharges arising from the left anterior temporal lobe, 12/07, improved on 12/09 EEG study. 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 This type of course would be very unlikely in any type of encephalitis. Past medical history of atrial fibrillation for which he is on Eliquis, DVT, left arm, type 2 diabetes, dysphagia after the hospitalization 2 months ago, 2.5 cm x 2.5 cm right renal mass, acute ischemic event of the left arm, tonsillectomy, cataract surgery, two back surgeries Plan Levetiracetam Left anterior temporal brain biopsy cancelled Rehabilitation modalities. Decision regarding nutrition Acetaminophen NC as needed for headache Discussed with patient's Subjective None Objective Vital Signs Date Time Temp Pulse Resp B/P (MAP) Pulse Ox O2 Delivery O2 Flow Rate FiO2 12/16/20 11:00 97.5 66 16 139/66 (90) 98 Room Air 97.5 12/16/20 08:00 2.0 Intake and Output 12/16/20 07:00 Intake Total 2200 ml Balance 2200 ml Intake Oral 0 ml IV Total 2200 ml # Voids 5 PHYSICAL EXAM Sleepy, alerts to voice. Oriented only to person. Follows commands. Mittens off PERRL. EOMI. CN: no focal findings. Muscle tone: normal. Muscle strength: 4/5 DTR: 2+ Plantar reflex: Flexor Gait: not examined in bed. Sensory exam: no abnormal findings. Cerebellar: Not cooperative Review of Relevant I have reviewed the following items megan (where applicable) has been applied. Labs Laboratory Tests Test 12/15/20 06:15 SARS-CoV-2 Antigen (Rapid) Negative (NEGATIVE) Medications Current Medications Diphtheria/ Tetanus/Acell Pertussis (ADACEL TDap SYRINGE) 0.5 ml ONCE ONCE VAX IM Last administered on 12/05/20at 14:44; Start 12/05/20 at 12:00; Stop 12/05/20 at 12:03; Status DC Iohexol (Omnipaque 300 Mg/ml) 75 ml 1X ONCE IV Last administered on 12/05/20at 13:00; Start 12/05/20 at 12:30; Stop 12/05/20 at 12:31; Status DC Info (CONTRAST GIVEN -- Rx MONITORING) 1 each PRN DAILY PRN MC SEE COMMENTS; Start 12/05/20 at 12:30; Stop 12/07/20 at 12:29; Status DC Lorazepam (Ativan Inj) 0.5 mg 1X ONCE IVP Last administered on 12/05/20at 12:50; Start 12/05/20 at 13:00; Stop 12/05/20 at 13:01; Status DC Acyclovir Sodium 530 mg/Dextrose 110.6 ml @ 110.6 mls/ hr 1X ONCE IV Last administered on 12/05/20at 15:50; Start 12/05/20 at 15:00; Stop 12/05/20 at 15:59; Status DC Haloperidol Lactate (Haldol Inj) 5 mg 1X ONCE IVP Last administered on 12/05/20at 15:38; Start 12/05/20 at 15:45; Stop 12/05/20 at 15:46; Status DC Midazolam HCl (Versed) 2 mg STK-MED ONCE .ROUTE ; Start 12/05/20 at 15:51; Stop 12/05/20 at 15:52; Status DC Acyclovir Sodium 600 mg/Dextrose 262 ml @ 262 mls/hr Q12HR IV Last administered on 12/05/20at 23:42; Start 12/06/20 at 00:00; Stop 12/06/20 at 05:21; Status DC Acyclovir Sodium 600 mg/Dextrose 112 ml @ 112 mls/hr Q12HR IV Last administered on 12/11/20at 09:00; Start 12/06/20 at 09:00; Stop 12/11/20 at 09:06; Status DC Haloperidol Lactate (Haldol Inj) 3 mg PRN Q6HRS PRN IVP AGITATION Last administered on 12/06/20at 21:01; Start 12/06/20 at 10:00 Lorazepam (Ativan Inj) 1 mg PRN Q4HRS PRN IVP ANXIETY / AGITATION-1ST Last administered on 12/15/20at 23:54; Start 12/06/20 at 10:00 Lorazepam (Ativan Inj) 1 mg 1X ONCE IVP Last administered on 12/06/20at 10:07; Start 12/06/20 at 10:00; Stop 12/06/20 at 10:01; Status DC Levetiracetam (Keppra) 500 mg BID PO ; Start 12/07/20 at 13:45; Stop 12/07/20 at 13:43; Status DC Levetiracetam 500 mg/Dextrose 105 ml @ 420 mls/hr Q12HR IV Last administered on 12/16/20at 09:17; Start 12/07/20 at 14:30 Sodium Chloride 1,000 ml @ 75 mls/hr [id number] IV Last administered on 12/10/20at 01:51; Start 12/09/20 at 10:45; Stop 12/10/20 at 13:37; Status DC Amino Acids/ Electrolytes/ Dextrose 1,000 ml @ 80 mls/hr [id number] IV Last administered on 12/16/20at 06:10; Start 12/10/20 at 13:45 Cefazolin Sodium/ Dextrose 50 ml @ 100 mls/hr 1X PREOP PRN IV PRIOR TO PROCEDURE; Start 12/15/20 at 06:00; Stop 12/15/20 at 13:38; Status DC Fentanyl Citrate (Fentanyl 2ml Vial) 25 mcg PRN Q5MIN PRN IVP MILD PAIN 1-3; Start 12/15/20 at 06:00; Stop 12/15/20 at 20:00; Status DC Fentanyl Citrate (Fentanyl 2ml Vial) 50 mcg PRN Q5MIN PRN IVP MODERATE PAIN 4- 6; Start 12/15/20 at 06:00; Stop 12/15/20 at 20:00; Status DC Morphine Sulfate (Morphine Sulfate) 1 mg PRN Q10MIN PRN IVP SEVERE PAIN 7-10 Last administered on 12/15/20at 08:13; Start 12/15/20 at 06:00; Stop 12/15/20 at 20:00; Status DC Ringer's Solution 1,000 ml @ 30 mls/hr Q24H IV ; Start 12/15/20 at 06:00; Stop 12/15/20 at 13:40; Status DC Hydromorphone HCl (Dilaudid) 0.5 mg PRN Q10MIN PRN IVP SEVERE PAIN 7-10, 2nd CHOICE; Start 12/15/20 at 06:00; Stop 12/15/20 at 20:00; Status DC Prochlorperazine Edisylate (Compazine) 5 mg PACU PRN PRN IVP NAUSEA, MRX1; Start 12/15/20 at 06:00; Stop 12/15/20 at 20:00; Status DC Cefazolin Sodium 1 gm/Sodium Chloride 1,000 ml @ 1,000 mls/hr 1X ONCE IRR ; Start 12/15/20 at 06:00; Stop 12/15/20 at 07:00; Status DC Acetaminophen (Tylenol Supp) 650 mg PRN Q6HRS PRN NC MILD PAIN / TEMP > 100.3'F; Start 12/15/20 at 08:30 Propofol (Diprivan) 200 mg STK-MED ONCE IV ; Start 12/15/20 at 09:06; Stop 12/15/20 at 11:06; Status DC Lidocaine HCl (Lidocaine Pf 2% Vial) 5 ml STK-MED ONCE .ROUTE ; Start 12/15/20 at 09:06; Stop 12/15/20 at 11:06; Status DC Dexamethasone Sodium Phosphate (Decadron) 4 mg STK-MED ONCE .ROUTE ; Start 12/15/20 at 09:06; Stop 12/15/20 at 11:06; Status DC Ondansetron HCl (Zofran) 4 mg STK-MED ONCE .ROUTE ; Start 12/15/20 at 09:06; Stop 12/15/20 at 11:06; Status DC Propofol 50 ml @ As Directed STK-MED ONCE IV ; Start 12/15/20 at 09:06; Stop 1 02/15/20 at 11:07; Status DC Rocuronium [place] (Zemuron) 50 mg STK-MED ONCE .ROUTE ; Start 12/15/20 at 09:07; Stop 12/15/20 at 11:08; Status DC Active Scripts Active Reported Fludrocortisone Acetate 0.1 Mg Tablet 0.1 Mg PO DAILY Eliquis (Apixaban) 5 Mg Tablet 5 Mg PO BIDWMEALS Metformin Hcl 1,000 Mg Tablet 1,000 Mg PO BIDWMEALS Ezetimibe 10 Mg Tablet 10 Mg PO HS Crestor (Rosuvastatin Calcium) 10 Mg Tablet 10 Mg PO HS Zetia (Ezetimibe) 10 Mg Tablet 10 Mg PO DAILY Vitals/I & O Vital Sign - Last 24 Hours 12/15/20 12/15/20 12/15/20 12/15/20 15:00 19:15 20:00 23:15 Temp 97.4 97.4 97.5 97.4 97.4 97.5 Pulse 68 66 79 Resp 18 20 20 B/P (MAP) 154/83 (106) 148/65 (92) 187/89 (121) Pulse Ox 95 94 96 O2 Delivery Room Air Room Air Room Air Room Air 12/16/20 12/16/20 12/16/20 12/16/20 03:15 07:00 08:00 11:00 Temp 97.7 97.6 97.5 97.7 97.6 97.5 Pulse 82 70 66 Resp 20 18 16 B/P (MAP) 161/81 (107) 177/80 (112) 139/66 (90) Pulse Ox 95 96 98 O2 Delivery Room Air Room Air Room Air Room Air O2 Flow Rate 2.0 Intake and Output 12/15/20 12/15/20 12/16/20 15:00 23:00 07:00 Intake Total 1100 ml 1100 ml 0 ml Balance 1100 ml 1100 ml 0 ml Justicifation of Admission Dx: Justifications for Admission: Justification of Admission Dx: N/A KATHRYN HALL MD Dec 16, 2020 12:08
--- NOTE | 2020-12-16 12:30 | NUR ---
ANDRY following up with discharge planning. SS reviewed pt chart and discussed with pt RN. Pt is currently on room air. COVID19 negative. Pt NPO and on Clinimix. Pt on IV Keppra. Pt's family declining PEG placement today and are requesting to speak with Dr. Evans in person to discuss goals of care. Pt's family requesting to take pt home at discharge and are considering hospice. Pt's spouse wanting to discuss with Dr. Evans. SS contacted Dr. Evans and requested that he please contact pt's family to discuss. SS will continue to follow for discharge planning.
[2020-12-16 15:00] VITALS: BP 182/82
[2020-12-16] MEDS ORDERED: cloNIDine HCL 0.1 MG TABLET PO PRN (16:30)
--- NOTE | 2020-12-16 16:30 | NUR ---
Dr. Evans notified about the BP 182/82, 69. New order received for clonidine 0.1 mg PRN q 6 for BP>160. This nurse told the pt is NPO and is getting clinimix. Dr. JO for giving PRN po with sip of water
[2020-12-16 19:00] VITALS: BP 148/72
[2020-12-16 23:51] VITALS: BP 145/75
--- NOTE | 2020-12-17 00:54 | PN ---
DATE: 12/16/2020 DAILY PROGRESS NOTE LOCATION: He is in room 660. SUBJECTIVE: This 84-year-old male remains hospitalized with encephalopathy, currently uncertain etiology. He continues to be more talkative, a little more oriented on a daily basis. He still, however, remains confused. OBJECTIVE: VITAL SIGNS: Stable. He is afebrile. CHEST: Clear. HEART: Regular. ABDOMEN: Benign. NEUROLOGIC: Nonfocal. I spoke with and son at length. They are currently refusing feeding tube as it was recommended to them and they had one a couple of years ago. The patient has told them emphatically during this stay he does not want that again. They are okay with letting him eat and drink and do as he will with the same. They have also elected to go with hospice and feel like the best time would be Monday evening when the boys could be over their house to move him back home and we will tentatively plan on this. IMPRESSION: 1. Encephalopathy of uncertain etiology, ongoing workup. 2. Diabetes. PLAN: Continue present care. We will allow him to eat or drink as tolerated. Home with hospice. Tentatively plan for Monday afternoon. GARCIA/ZOHRA/COSME DR: GARCIA/garrett TID: [id number]
[2020-12-17 02:21] VITALS: BP 144/69
[2020-12-17 07:00] VITALS: BP 152/72
[2020-12-17] MEDS: levETIRAcetam 500 MG in IV DEXTROSE 5% 100ML 100 ML IV SCH (08:46)
--- NOTE | 2020-12-17 09:05 | PN ---
DATE: 12/17/2020 LOCATION: He is in room 660. SUBJECTIVE: This 84-year-old male remains hospitalized with encephalopathy of uncertain etiology. He continues, however, becoming more alert, more talkative and less confused. I had a long discussions with family and plan for discharge tomorrow later afternoon, so that they can have dialysis set up with hospice. They are refusing a feeding tube with him, not wanting the same and are willing to take the risks of eating and will start him on a soft diet today as a result. OBJECTIVE: VITAL SIGNS: Stable. He is afebrile. CHEST: Clear. HEART: Regular. ABDOMEN: Benign. NEUROLOGIC: Nonfocal. IMPRESSION: Encephalopathy of uncertain etiology, diabetes. PLAN: Soft diet today with again plans with discharge tomorrow afternoon with on hospice. JORDEN DR: Ana TID: [id number]
[2020-12-17] MEDS: AA 4.25 %/CALCIUM/LYTES/D5W 1,000 ML IV SCH ×2 (09:32→20:45)
--- NOTE | 2020-12-17 10:42 | NUR ---
SS following up with discharge planning. SS reviewed pt chart and discussed with pt RN. Pt is currently on room air. COVID19 negative. Pt NPO and on Clinimix. Pt on IV Keppra. Pt's family requesting hospice services with [facility], ; fax [phone]. Referral was sent and [facility] met with family and 0900 today. Pt's family agreeable to services. DME to be delivered to the home tomorrow before noon. Pt's sons to arrive at the home tomorrow afternoon. Per Dr. Evans, pt will discharge tomorrow at 1600 and is in need of transportation to home. Transportation arranged via [facility] for 1600 tomorrow. SS currently awaiting orders for hospice. SS will continue to follow for discharge planning.
[2020-12-17 11:00] VITALS: BP 144/67
--- NOTE | 2020-12-17 11:25 | PDOC ---
PROGRESS NOTES Date of Service DATE: 12/17/20 TIME: 11:23 Assessment Problems Medical Problems: (1) Abnormal CT of brain Status: Acute (2) Abrasion of head Status: Acute (3) Altered mental status Status: Acute (4) Microcytic anemia Status: Acute (5) Need for Tdap vaccination Status: Acute has decided to forego the brain biopsy and wants to take him home with hospice. Bilateral temporal lobe edema and diffusion restriction. This was also observed at [facility]. Lumbar puncture here shows 1 white blood cell, 0 red blood cells, glucose 116, protein 139.2. I doubt any type of acute encephalitis, paraneoplastic encephalitis, ongoing seizure activity. I wonder about a low- grade neoplasm, for instance lymphoma. EEG showed periodic lateralizing epileptiform discharges arising from the left anterior temporal lobe, 12/07, improved on 12/09 EEG study. West Nile CSF IgG positive, IgM negative, doubt acute West Nile encephalitis HSV CSF PCR negative Possible concussion Prior dementia Failed his swallow study Past medical history of atrial fibrillation for which he is on Eliquis, DVT, left arm, type 2 diabetes, dysphagia after the hospitalization 2 months ago, 2.5 cm x 2.5 cm right renal mass, acute ischemic event of the left arm, t onsillectomy, cataract surgery, two back surgeries Plan I discussed risk, benefits, alternatives with the , I will stop the levetiracetam just to give us an idea over the next 24 hours whether he needs it still. There is a risk of breakthrough seizures of course versus the benefits of not having to worry about giving him levetiracetam orally. Again, patient is not can have a PEG or an IV and with hospice Hospice, comfort care Acetaminophen OR as needed for headache Discussed with patient's Subjective Denies headache Objective Vital Signs Date Time Temp Pulse Resp B/P (MAP) Pulse Ox O2 Delivery O2 Flow Rate FiO2 12/17/20 11:00 97.5 68 16 144/67 (92) 98 Room Air 97.5 12/16/20 08:00 2.0 Intake and Output 12/17/20 07:00 Intake Total 0 ml Balance 0 ml Intake Oral 0 ml # Voids 6 PHYSICAL EXAM Sleepy, alerts to voice. Oriented only to person. Follows commands. Mittens off PERRL. EOMI. CN: no focal findings. Muscle tone: normal. Muscle strength: 4/5 DTR: 2+ Plantar reflex: Flexor Gait: not examined in bed. Sensory exam: no abnormal findings. Cerebellar: Not cooperative Review of Relevant I have reviewed the following items megan (where applicable) has been applied. Medications Current Medications Diphtheria/ Tetanus/Acell Pertussis (ADACEL TDap SYRINGE) 0.5 ml ONCE ONCE VAX IM Last administered on 12/05/20at 14:44; Start 12/05/20 at 12:00; Stop 12/05/20 at 12:03; Status DC Iohexol (Omnipaque 300 Mg/ml) 75 ml 1X ONCE IV Last administered on 12/05/20at 13:00; Start 12/05/20 at 12:30; Stop 12/05/20 at 12:31; Status DC Info (CONTRAST GIVEN -- Rx MONITORING) 1 each PRN DAILY PRN MC SEE COMMENTS; Start 12/05/20 at 12:30; Stop 12/07/20 at 12:29; Status DC Lorazepam (Ativan Inj) 0.5 mg 1X ONCE IVP Last administered on 12/05/20at 12:50; Start 12/05/20 at 13:00; Stop 12/05/20 at 13:01; Status DC Acyclovir Sodium 530 mg/Dextrose 110.6 ml @ 110.6 mls/ hr 1X ONCE IV Last administered on 12/05/20at 15:50; Start 12/05/20 at 15:00; Stop 12/05/20 at 15:59; Status DC Haloperidol Lactate (Haldol Inj) 5 mg 1X ONCE IVP Last administered on 12/05/20at 15:38; Start 12/05/20 at 15:45; Stop 12/05/20 at 15:46; Status DC Midazolam HCl (Versed) 2 mg STK-MED ONCE .ROUTE ; Start 12/05/20 at 15:51; Stop 12/05/20 at 15:52; Status DC Acyclovir Sodium 600 mg/Dextrose 262 ml @ 262 mls/hr Q12HR IV Last administered on 12/05/20at 23:42; Start 12/06/20 at 00:00; Stop 12/06/20 at 05:21; Status DC Acyclovir Sodium 600 mg/Dextrose 112 ml @ 112 mls/hr Q12HR IV Last administered on 12/11/20at 09:00; Start 12/06/20 at 09:00; Stop 12/11/20 at 09:06; Status DC Haloperidol Lactate (Haldol Inj) 3 mg PRN Q6HRS PRN IVP AGITATION Last administered on 12/06/20at 21:01; Start 12/06/20 at 10:00 Lorazepam (Ativan Inj) 1 mg PRN Q4HRS PRN IVP ANXIETY / AGITATION-1ST Last administered on 12/15/20at 23:54; Start 12/06/20 at 10:00 Lorazepam (Ativan Inj) 1 mg 1X ONCE IVP Last administered on 12/06/20at 10:07; Start 12/06/20 at 10:00; Stop 12/06/20 at 10:01; Status DC Levetiracetam (Keppra) 500 mg BID PO ; Start 12/07/20 at 13:45; Stop 12/07/20 at 13:43; Status DC Levetiracetam 500 mg/Dextrose 105 ml @ 420 mls/hr Q12HR IV Last administered on 12/17/20at 08:46; Start 12/07/20 at 14:30 Sodium Chloride 1,000 ml @ 75 mls/hr [id number] IV Last administered on 12/10/20at 01:51; Start 12/09/20 at 10:45; Stop 12/10/20 at 13:37; Status DC Amino Acids/ Electrolytes/ Dextrose 1,000 ml @ 80 mls/hr [id number] IV Last administered on 12/17/20at 09:32; Start 12/10/20 at 13:45 Cefazolin Sodium/ Dextrose 50 ml @ 100 mls/hr 1X PREOP PRN IV PRIOR TO PROCED URE; Start 12/15/20 at 06:00; Stop 12/15/20 at 13:38; Status DC Fentanyl Citrate (Fentanyl 2ml Vial) 25 mcg PRN Q5MIN PRN IVP MILD PAIN 1-3; Start 12/15/20 at 06:00; Stop 12/15/20 at 20:00; Status DC Fentanyl Citrate (Fentanyl 2ml Vial) 50 mcg PRN Q5MIN PRN IVP MODERATE PAIN 4- 6; Start 12/15/20 at 06:00; Stop 12/15/20 at 20:00; Status DC Morphine Sulfate (Morphine Sulfate) 1 mg PRN Q10MIN PRN IVP SEVERE PAIN 7-10 Last administered on 12/15/20at 08:13; Start 12/15/20 at 06:00; Stop 12/15/20 at 20:00; Status DC Ringer's Solution 1,000 ml @ 30 mls/hr Q24H IV ; Start 12/15/20 at 06:00; Stop 12/15/20 at 13:40; Status DC Hydromorphone HCl (Dilaudid) 0.5 mg PRN Q10MIN PRN IVP SEVERE PAIN 7-10, 2nd CHOICE; Start 12/15/20 at 06:00; Stop 12/15/20 at 20:00; Status DC Prochlorperazine Edisylate (Compazine) 5 mg PACU PRN PRN IVP NAUSEA, MRX1; Start 12/15/20 at 06:00; Stop 12/15/20 at 20:00; Status DC Cefazolin Sodium 1 gm/Sodium Chloride 1,000 ml @ 1,000 mls/hr 1X ONCE IRR ; Start 12/15/20 at 06:00; Stop 12/15/20 at 07:00; Status DC Acetaminophen (Tylenol Supp) 650 mg PRN Q6HRS PRN OR MILD PAIN / TEMP > 100.3'F; Start 12/15/20 at 08:30 Propofol (Diprivan) 200 mg STK-MED ONCE IV ; Start 12/15/20 at 09:06; Stop 12/15/20 at 11:06; Status DC Lidocaine HCl (Lidocaine Pf 2% Vial) 5 ml STK-MED ONCE .ROUTE ; Start 12/15/20 at 09:06; Stop 12/15/20 at 11:06; Status DC Dexamethasone Sodium Phosphate (Decadron) 4 mg STK-MED ONCE .ROUTE ; Start 12/15/20 at 09:06; Stop 12/15/20 at 11:06; Status DC Ondansetron HCl (Zofran) 4 mg STK-MED ONCE .ROUTE ; Start 12/15/20 at 09:06; Stop 12/15/20 at 11:06; Status DC Propofol 50 ml @ As Directed STK-MED ONCE IV ; Start 12/15/20 at 09:06; Stop 12/15/20 at 11:07; Status DC Rocuronium [place] (Zemuron) 50 mg STK-MED ONCE .ROUTE ; Start 12/15/20 at 09:07; Stop 12/15/20 at 11:08; Status DC Cefazolin Sodium/ Dextrose (Ancef 2gm Premix) 2 gm STK-MED ONCE IV ; Start 12/15/20 at 09:00; Stop 12/16/20 at 13:25; Status DC Clonidine HCl (Catapres) 0.1 mg PRN Q6HRS PRN PO HYPERTENSION Last administered on 12/16/20at 16:39; Start 12/16/20 at 16:30 Active Scripts Active Reported Fludrocortisone Acetate 0.1 Mg Tablet 0.1 Mg PO DAILY Eliquis (Apixaban) 5 Mg Tablet 5 Mg PO BIDWMEALS Metformin Hcl 1,000 Mg Tablet 1,000 Mg PO BIDWMEALS Ezetimibe 10 Mg Tablet 10 Mg PO HS Crestor (Rosuvastatin Calcium) 10 Mg Tablet 10 Mg PO HS Zetia (Ezetimibe) 10 Mg Tablet 10 Mg PO DAILY Vitals/I & O Vital Sign - Last 24 Hours 12/16/20 12/16/20 12/16/20 12/16/20 15:00 16:39 19:00 20:00 Temp 97.8 97.7 97.8 97.7 Pulse 64 64 63 Resp 18 18 B/P (MAP) 182/82 (115) 182/82 148/72 (97) Pulse Ox 96 97 O2 Delivery Room Air Room Air Room Air 12/16/20 12/17/20 12/17/20 12/17/20 23:51 02:21 07:00 11:00 Temp 98.3 97.7 97.5 97.5 98.3 97.7 97.5 97.5 Pulse 65 70 68 68 Resp 18 19 16 16 B/P (MAP) 145/75 (98) 144/69 (94) 152/72 (98) 144/67 (92) Pulse Ox 97 95 94 98 O2 Delivery Room Air Room Air Room Air Room Air Intake and Output 12/16/20 12/16/20 12/17/20 15:00 23:00 07:00 Intake Total 0 ml 0 ml Balance 0 ml 0 ml Justicifation of Admission Dx: Justifications for Admission: Justification of Admission Dx: N/A KATHRYN HALL MD Dec 17, 2020 11:25
[2020-12-17 15:00] VITALS: BP 133/64
[2020-12-17 19:00] VITALS: BP 147/112
[2020-12-17 23:09] VITALS: BP 129/63
[2020-12-18 02:37] VITALS: BP 153/74
[2020-12-18 07:00] VITALS: BP 125/67
--- NOTE | 2020-12-18 07:55 | SNU/HH DC ---
DISCHARGE ORDERS DISCHARGE INFORMATION: DISCHARGE DATE: Dec 18, 2020 FINAL DIAGNOSIS Problems Medical Problems: (1) Abnormal CT of brain Status: Acute (2) Abrasion of head Status: Acute (3) Altered mental status Status: Acute (4) Microcytic anemia Status: Acute (5) Need for Tdap vaccination Status: Acute CONDITION ON DISCHARGE: Stable CODE STATUS: Code Status: DNR/DNI [facility]: SNF STAY <30 DAYS: No HOSPICE: HOSPICE: Yes HOSPICE EVAL & TREAT: Yes LTAC: ADMIT TO LTAC: No POST DISCHARGE ORDERS: ACTIVITY ORDERS: Activity as tolerated WEIGHT BEARING STATUS: As tolerated DIET AFTER DISCHARGE: Regular TREATMENT/EQUIPMENT ORDERS: ADAPTIVE EQUIPMENT NEEDED: None DISCHARGE MEDICATIONS: Home Meds Reported Medications Apixaban (ELIQUIS) 5 Mg Tablet, 5 MG PO BIDWMEALS for DVT PROPHY, TAB 12/05/20 Metformin Hcl (METFORMIN HCL) 1,000 Mg Tablet, 1000 MG PO BIDWMEALS for DM, TAB 12/05/20 Discontinued Reported Medications Fludrocortisone Acetate (FLUDROCORTISONE ACETATE) 0.1 Mg Tablet, 0.1 MG PO DAILY for UNKNOWN TO FAMILY, TAB 12/05/20 Ezetimibe (Ezetimibe) 10 Mg Tablet, 10 MG PO HS for HLD, TAB 12/05/20 Rosuvastatin Calcium (CRESTOR) 10 Mg Tablet, 10 MG PO HS for FOR CHOLESTEROL, # 30 TAB 0 Refills 07/25/13 Ezetimibe (ZETIA) 10 Mg Tablet, 10 MG PO DAILY, TAB 07/25/13 MARISELA RAMOS MD Dec 18, 2020 07:55
--- NOTE | 2020-12-18 09:01 | PDOC ---
PROGRESS NOTES Date of Service DATE: 12/18/20 TIME: 08:59 Assessment Problems Medical Problems: (1) Abnormal CT of brain Status: Acute (2) Abrasion of head Status: Acute (3) Altered mental status Status: Acute (4) Microcytic anemia Status: Acute (5) Need for Tdap vaccination Status: Acute has decided to forego the brain biopsy and wants to take him home with hospice. Bilateral temporal lobe edema and diffusion restriction. This was also observed at [facility]. Lumbar puncture here shows 1 white blood cell, 0 red blood cells, glucose 116, protein 139.2. I doubt any type of acute encephalitis, paraneoplastic encephalitis, ongoing seizure activity. I wonder about a low- grade neoplasm, for instance lymphoma. EEG showed periodic lateralizing epileptiform discharges arising from the left anterior temporal lobe, 12/07, improved on 12/09 EEG study. West Nile CSF IgG positive, IgM negative, doubt acute West Nile encephalitis HSV CSF PCR negative Possible concussion Prior dementia Failed his swallow study Past medical history of atrial fibrillation for which he is on Eliquis, DVT, left arm, type 2 diabetes, dysphagia after the hospitalization 2 months ago, 2.5 cm x 2.5 cm right renal mass, acute ischemic event of the left arm, t onsillectomy, cataract surgery, two back surgeries Plan I discussed risk, benefits, alternatives with the , I will stop the levetiracetam just to give us an idea over the next 24 hours whether he needs it still. There is a risk of breakthrough seizures of course versus the benefits of not having to worry about giving him levetiracetam orally. Again, patient is intrerested in a PEG or an IV and with hospice. is under the impression that he still is getting the levetiracetam, but it is not on the medication administration record I discussed signs and symptoms of seizures including convulsive and partial- complex Hospice, comfort care Acetaminophen NV as needed for headache Discussed with patient's Subjective No complaints Objective Vital Signs Date Time Temp Pulse Resp B/P (MAP) Pulse Ox O2 Delivery O2 Flow Rate FiO2 12/18/20 07:00 97.0 76 16 125/67 (86) 95 Room Air 97.0 12/17/20 08:00 2.0 Intake and Output 12/18/20 07:00 Intake Total 100 ml Output Total 200 ml Balance -100 ml Intake Oral 100 ml Output Urine Total 200 ml # Voids 2 PHYSICAL EXAM Alert. Oriented to person, knows that it is his birthday, excited to go home. Follows commands. Mittens off PERRL. EOMI. CN: no focal findings. Muscle tone: normal. Muscle strength: 4/5 DTR: 2+ Plantar reflex: Flexor Gait: not examined in bed. Sensory exam: no abnormal findings. Cerebellar: Not cooperative Review of Relevant I have reviewed the following items megan (where applicable) has been applied. Medications Current Medications Diphtheria/ Tetanus/Acell Pertussis (ADACEL TDap SYRINGE) 0.5 ml ONCE ONCE VAX IM Last administered on 12/05/20at 14:44; Start 12/05/20 at 12:00; Stop 11/08 at 12:03; Status DC Iohexol (Omnipaque 300 Mg/ml) 75 ml 1X ONCE IV Last administered on 12/05/20at 13:00; Start 12/05/20 at 12:30; Stop 12/05/20 at 12:31; Status DC Info (CONTRAST GIVEN -- Rx MONITORING) 1 each PRN DAILY PRN MC SEE COMMENTS; S tart 12/05/20 at 12:30; Stop 12/07/20 at 12:29; Status DC Lorazepam (Ativan Inj) 0.5 mg 1X ONCE IVP Last administered on 12/05/20at 12:50; Start 12/05/20 at 13:00; Stop 12/05/20 at 13:01; Status DC Acyclovir Sodium 530 mg/Dextrose 110.6 ml @ 110.6 mls/ hr 1X ONCE IV Last administered on 12/05/20at 15:50; Start 12/05/20 at 15:00; Stop 12/05/20 at 15:59; Status DC Haloperidol Lactate (Haldol Inj) 5 mg 1X ONCE IVP Last administered on 12/05/20at 15:38; Start 12/05/20 at 15:45; Stop 12/05/20 at 15:46; Status DC Midazolam HCl (Versed) 2 mg STK-MED ONCE .ROUTE ; Start 12/05/20 at 15:51; Stop 12/05/20 at 15:52; Status DC Acyclovir Sodium 600 mg/Dextrose 262 ml @ 262 mls/hr Q12HR IV Last administered on 12/05/20at 23:42; Start 12/06/20 at 00:00; Stop 12/06/20 at 05:21; Status DC Acyclovir Sodium 600 mg/Dextrose 112 ml @ 112 mls/hr Q12HR IV Last administered on 12/11/20at 09:00; Start 12/06/20 at 09:00; Stop 12/11/20 at 09:06; Status DC Haloperidol Lactate (Haldol Inj) 3 mg PRN Q6HRS PRN IVP AGITATION Last administered on 12/06/20at 21:01; Start 12/06/20 at 10:00 Lorazepam (Ativan Inj) 1 mg PRN Q4HRS PRN IVP ANXIETY / AGITATION-1ST Last administered on 12/15/20at 23:54; Start 12/06/20 at 10:00 Lorazepam (Ativan Inj) 1 mg 1X ONCE IVP Last administered on 12/06/20at 10:07; Start 12/06/20 at 10:00; Stop 12/06/20 at 10:01; Status DC Levetiracetam (Keppra) 500 mg BID PO ; Start 12/07/20 at 13:45; Stop 12/07/20 at 13:43; Status DC Levetiracetam 500 mg/Dextrose 105 ml @ 420 mls/hr Q12HR IV Last administered on 12/17/20at 08:46; Start 12/07/20 at 14:30; Stop 12/17/20 at 11:24; Status DC Sodium Chloride 1,000 ml @ 75 mls/hr [id number] IV Last administered on 12/10/20at 01:51; Start 12/09/20 at 10:45; Stop 12/10/20 at 13:37; Status DC Amino Acids/ Electrolytes/ Dextrose 1,000 ml @ 80 mls/hr [id number] IV Last administered on 12/17/20at 09:32; Start 12/10/20 at 13:45 Cefazolin Sodium/ Dextrose 50 ml @ 100 mls/hr 1X PREOP PRN IV PRIOR TO PROCEDURE; Start 12/15/20 at 06:00; Stop 12/15/20 at 13:38; Status DC Fentanyl Citrate (Fentanyl 2ml Vial) 25 mcg PRN Q5MIN PRN IVP MILD PAIN 1-3; Start 12/15/20 at 06:00; Stop 12/15/20 at 20:00; Status DC Fentanyl Citrate (Fentanyl 2ml Vial) 50 mcg PRN Q5MIN PRN IVP MODERATE PAIN 4- 6; Start 12/15/20 at 06:00; Stop 12/15/20 at 20:00; Status DC Morphine Sulfate (Morphine Sulfate) 1 mg PRN Q10MIN PRN IVP SEVERE PAIN 7-10 Last administered on 12/15/20at 08:13; Start 12/15/20 at 06:00; Stop 12/15/20 at 20:00; Status DC Ringer's Solution 1,000 ml @ 30 mls/hr Q24H IV ; Start 12/15/20 at 06:00; Stop 12/15/20 at 13:40; Status DC Hydromorphone HCl (Dilaudid) 0.5 mg PRN Q10MIN PRN IVP SEVERE PAIN 7-10, 2nd CHOICE; Start 12/15/20 at 06:00; Stop 12/15/20 at 20:00; Status DC Prochlorperazine Edisylate (Compazine) 5 mg PACU PRN PRN IVP NAUSEA, MRX1; Start 12/15/20 at 06:00; Stop 12/15/20 at 20:00; Status DC Cefazolin Sodium 1 gm/Sodium Chloride 1,000 ml @ 1,000 mls/hr 1X ONCE IRR ; Start 12/15/20 at 06:00; Stop 12/15/20 at 07:00; Status DC Acetaminophen (Tylenol Supp) 650 mg PRN Q6HRS PRN NV MILD PAIN / TEMP > 100.3'F; Start 12/15/20 at 08:30 Propofol (Diprivan) 200 mg STK-MED ONCE IV ; Start 12/15/20 at 09:06; Stop 12/15/20 at 11:06; Status DC Lidocaine HCl (Lidocaine Pf 2% Vial) 5 ml STK-MED ONCE .ROUTE ; Start 12/15/20 at 09:06; Stop 12/15/20 at 11:06; Status DC Dexamethasone Sodium Phosphate (Decadron) 4 mg STK-MED ONCE .ROUTE ; Start 12/15/20 at 09:06; Stop 12/15/20 at 11:06; Status DC Ondansetron HCl (Zofran) 4 mg STK-MED ONCE .ROUTE ; Start 12/15/20 at 09:06; Stop 12/15/20 at 11:06; Status DC Propofol 50 ml @ As Directed STK-MED ONCE IV ; Start 12/15/20 at 09:06; Stop 12/15/20 at 11:07; Status DC Rocuronium [place] (Zemuron) 50 mg STK-MED ONCE .ROUTE ; Start 12/15/20 at 09:07; Stop 12/15/20 at 11:08; Status DC Cefazolin Sodium/ Dextrose (Ancef 2gm Premix) 2 gm STK-MED ONCE IV ; Start 12/15/20 at 09:00; Stop 12/16/20 at 13:25; Status DC Clonidine HCl (Catapres) 0.1 mg PRN Q6HRS PRN PO HYPERTENSION Last administered on 12/16/20at 16:39; Start 12/16/20 at 16:30 Active Scripts Active Reported Eliquis (Apixaban) 5 Mg Tablet 5 Mg PO BIDWMEALS Metformin Hcl 1,000 Mg Tablet 1,000 Mg PO BIDWMEALS Vitals/I & O Vital Sign - Last 24 Hours 12/17/20 12/17/20 12/17/20 12/17/20 11:00 15:00 19:00 23:09 Temp 97.5 97.6 97.8 97.6 97.5 97.6 97.8 97.6 Pulse 68 65 65 65 Resp 16 19 B/P (MAP) 144/67 (92) 133/64 (87) 147/112 (124) 129/63 (85) Pulse Ox 98 98 95 98 O2 Delivery Room Air Room Air Room Air Room Air 12/18/20 12/18/20 02:37 07:00 Temp 98.0 97.0 98.0 97.0 Pulse 65 76 Resp 19 16 B/P (MAP) 153/74 (100) 125/67 (86) Pulse Ox 94 95 O2 Delivery Room Air Room Air Intake and Output 12/17/20 12/17/20 12/18/20 15:00 23:00 07:00 Intake Total 0 ml 100 ml 0 ml Output Total 200 ml Balance -200 ml 100 ml 0 ml Justicifation of Admission Dx: Justifications for Admission: Justification of Admission Dx: N/A KATHRYN HALL MD Dec 18, 2020 09:01
[2020-12-18] MEDS: AA 4.25 %/CALCIUM/LYTES/D5W 1,000 ML IV SCH (09:15)
[2020-12-18 11:00] VITALS: BP 119/56
--- NOTE | 2020-12-18 11:41 | DS ---
DATE OF DISCHARGE: 12/18/2020 PRIMARY DIAGNOSES: 1. Encephalopathy with bilateral temporal lobe findings on imaging. 2. Encephalopathy. 3. Diabetes. 4. History of atrial fibrillation. 5. Cachexia. 6. Weight loss. 7. Dysphagia. CHIEF COMPLAINT AND HISTORY OF PRESENT ILLNESS: This is an 85-year-old male admitted through the Emergency Room with mental status change on the day of admission. He had had a fall the evening prior and was not acting right. SUMMARY OF STAY: The patient was admitted. Imaging showed bilateral temporal lobe findings. He was initially covered for herpes encephalitis. He did have spinal tap done in the Emergency Room, which was positive for elevated proteins and West Nile virus IgG antibody, but negative for herpes. He was treated with acyclovir throughout the majority of the stay until the testing came back negative. Neurology saw him and felt he needed probably a brain biopsy to further diagnose what was going on. Family refused the same and wanted more of a hospice type route. The thought of feeding tube was entertained also, but was denied by the patient as well as the family. He did improve mentally, but still was mildly confused at the time of discharge, which is out of character for him. They did go ahead and decided to let him eat and drink and take the risk of aspiration and the feeding tube was out and I think that is not a bad idea. Because of the overall situation with profound weight loss and failure to thrive over the last month or two, he was felt to be a hospice candidate and will be dismissed on hospice on the day of discharge. DISPOSITION: The patient is discharged to home. DIET: As tolerated. ACTIVITY: As tolerated. DISCHARGE MEDICATIONS: Listed on the med rec and have been addressed. Again, the hospice will be the avenue of care going forward. NIKKO GARDUNO: Ana TID: [id number]
--- NOTE | 2020-12-18 12:24 | NUR ---
SS following up with discharge planning. SS reviewed pt chart and discussed with pt RN. Pt is currently on room air. Discharge orders received for hospice and sent to [facility], ; fax [phone]. Pt will discharge today and return to home at 1600 via [facility] ambulance. Packet on chart. Pt, pt's RN, and pt's spouse notified.
== END 2020-12-18 16:30 | disposition hospice, home (50) | DRG 865 ==
LOC: ER 09:21 → 6 SOUTH 11:50
PROVIDERS: ADMIT Family Medicine; ATTEND Family Medicine
DX: A92.30 West Nile virus infection, unspecified (principal); G93.41 Metabolic encephalopathy; J90 Pleural effusion, not elsewhere classified; R47.01 Aphasia; R64 Cachexia; Z68.1 Body mass index [BMI] 19.9 or less, adult; D50.9 Iron deficiency anemia, unspecified; E11.9 Type 2 diabetes mellitus without complications; E78.5 Hyperlipidemia, unspecified; F03.90 Unspecified dementia, unspecified severity, without behavioral disturbance, psychotic disturbance, mood disturbance, and anxiety; I48.91 Unspecified atrial fibrillation; G40.909 Epilepsy, unspecified, not intractable, without status epilepticus; N28.89 Other specified disorders of kidney and ureter; R13.13 Dysphagia, pharyngeal phase; R62.7 Adult failure to thrive; W07.XXXA Fall from chair, initial encounter; Z79.01 Long term (current) use of anticoagulants; Z82.49 Family history of ischemic heart disease and other diseases of the circulatory system; Z86.718 Personal history of other venous thrombosis and embolism; Z87.891 Personal history of nicotine dependence; Z88.8 Allergy status to other drugs, medicaments and biological substances; Z91.040 Latex allergy status; Z20.822 Contact with and (suspected) exposure to COVID-19
CPT/HCPCS: 36415; 70450; 70496; 70498; 70551; 71045; 80053; 80307; 81001; 82787; 82945; 82962; 83735; 83880; 84157; 84484; 85025; 85610; 85651; 85730; 86788; 86789; 87426; 87529; 89051; 90471; 90715; 93005; 95816; 96365; 96375; J0133; J0690; J1100; J1630; J1953; J2060; J2270; J2405; J2704; J3490; J7060; Q9967; 92526-GN; 92610-GN; 97110-GO; 97110-GP; 97116-GP; 97530-GO; 97530-GP; 97535-GO; 99291-25; G0378